=== PATIENT | female | born 1960 | race Hispanic/Latino ===

== ENCOUNTER 2021-06-16 23:08 | Inpatient (IN) | payer MEDICARE ==
[2021-06-17] MEDS ORDERED: oxyCODONE /ACETAMINOPHEN 5-325MG TAB PO ONE (00:39)
[2021-06-17] MEDS ORDERED: KETOROLAC 60 MG/2 ML INJ IM ONE (00:40)
--- NOTE | 2021-06-17 00:40 | Emergency Department Report ---
ED General Adult HPI - General Chief complaint: Extremity Injury, Upper Stated complaint: JOINT/BACK PAIN PUI?: No Time Seen by Provider: 06/17/21 00:35 Source: EMS Mode of arrival: Stretcher Limitations: Physical Limitation - History of Present Illness Initial comments: Patient is a 61-year-old female who presents emergency room for management of her chronic pain. Patient states she is in service pain is usually ambulatory. P atient states that she needs help with housing. Patient states she lives by herself. Patient states that she is having joint swelling but that is chronic. Patient states she sees chronic pain management. 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 Patient states she is due for a knee replacement. Patient states her knee replacements been put on hold due to Covid. Patient states her pain is a 10 out of 10. Patient states her pain is better with rest and worse with movement and palpation. Patient denies recent travel. Patient denies recent international travel. Patient denies exposure to the novel coronavirus. Patient denies sick contacts. Patient denies fever and chills. Patient denies cough. Patient denies diarrhea. Patient denies coming in contact with anybody with symptoms of the novel coronavirus. Patient states that she has been calling assisted living see if she can get accepted. -: Sudden Location: upper extremity, lower extremity Severity scale (0 -10): 10 Quality: stabbing Consistency: constant (Chronic pain), other Improves with: rest Worsens with: movement Associated Symptoms: denies: confusion, chest pain, cough, diaphoresis, fever/chills, headaches, loss of appetite, malaise, nausea/vomiting, rash, seizure, shortness of breath, syncope, weakness Treatments Prior to Arrival: none - Related Data Allergies Allergy/AdvReac Type Severity Reaction Status Date / Time No Known Allergies Allergy Verified 06/17/21 00:25 ED Review of Systems ROS: Stated complaint: JOINT/BACK PAIN Other details as noted in HPI Constitutional: denies: chills, fever Eyes: denies: eye pain, eye discharge, vision change ENT: denies: ear pain, throat pain Respiratory: denies: cough, shortness of breath, wheezing Cardiovascular: denies: chest pain, palpitations Endocrine: no symptoms reported Gastrointestinal: denies: abdominal pain, nausea, diarrhea Genitourinary: denies: urgency, dysuria, discharge Musculoskeletal: as per HPI, back pain, joint swelling, arthralgia Skin: denies: rash, lesions Neurological: denies: headache, weakness, paresthesias Psychiatric: denies: anxiety, depression Hematological/Lymphatic: denies: easy bleeding, easy bruising ED Past Medical Hx - Past Medical History Previous Medical History?: Yes Additional medical history: chronic pain - Surgical History Past Surgical History?: No - Family History Family history: no significant - Social History Smoking Status: Current Some Day Smoker Substance Use Type: None ED Physical Exam - General Limitations: Physical Limitation General appearance: alert, in no apparent distress - Head Head exam: Present: atraumatic, normocephalic - Eye Eye exam: Present: normal appearance - ENT ENT exam: Present: mucous membranes moist - Neck Neck exam: Present: normal inspection - Respiratory Respiratory exam: Present: normal lung sounds bilaterally. Absent: respiratory distress - Cardiovascular Cardiovascular Exam: Present: regular rate, normal rhythm. Absent: systolic murmur, diastolic murmur, rubs, gallop - GI/Abdominal GI/Abdominal exam: Present: soft, normal bowel sounds - Extremities Exam Extremities exam: Present: normal inspection - Back Exam Back exam: Present: normal inspection - Neurological Exam Neurological exam: Present: alert, oriented X3 - Psychiatric Psychiatric exam: Present: normal affect, normal mood - Skin Skin exam: Present: warm, dry, intact, normal color. Absent: rash ED Course Vital Signs 06/16/21 06/17/21 06/17/21 23:20 01:18 01:30 Temperature 98.0 F Pulse Rate 102 H Respiratory 18 Rate Blood Pressure 133/91 114/91 Blood Pressure [Left] O2 Sat by Pulse 99 99 96 Oximetry 06/17/21 06/17/21 06/17/21 01:46 02:00 02:16 Temperature Pulse Rate Respiratory Rate Blood Pressure 114/91 116/86 116/86 Blood Pressure [Left] O2 Sat by Pulse 93 97 96 Oximetry 06/17/21 06/17/21 06/17/21 02:30 02:46 03:00 Temperature Pulse Rate Respiratory Rate Blood Pressure 114/91 114/91 119/79 Blood Pressure [Left] O2 Sat by Pulse 97 96 96 Oximetry 06/17/21 06/17/21 06/17/21 03:16 03:30 03:46 Temperature Pulse Rate Respiratory Rate Blood Pressure 119/79 119/79 119/79 Blood Pressure [Left] O2 Sat by Pulse 95 97 96 Oximetry 06/17/21 06/17/21 06/17/21 04:00 04:16 04:30 Temperature Pulse Rate Respiratory Rate Blood Pressure 123/78 123/78 123/78 Blood Pressure [Left] O2 Sat by Pulse 97 97 95 Oximetry 06/17/21 06:39 Temperature Pulse Rate 88 Respiratory 19 Rate Blood Pressure Blood Pressure 130/75 [Left] O2 Sat by Pulse 96 Oximetry - Reevaluation(s) Reevaluation #1: I discussed all results with patient. I discussed plan of care with patient. Patient agrees with plan of care and admission. Patient to be admitted to the hospitalist service. 06/17/21 04:33 - Consultations Consultation #1: I discussed the case with Dr. Montes and Dr. Montes does not recommend admission. Dr. Montes states that this is not osteomyelitis. Dr. Montes agrees with admitting and he will see the patient in the morning and make a determination. 06/17/21 04:25 Consultation #2: Hospitalist consulted for admission. Hospitalist to admit patient. 06/17/21 04:26 ED Medical Decision Making - Lab Data Result diagrams: 06/17/21 01:02 06/17/21 01:02 - Radiology Data Radiology results: report reviewed, image reviewed RIGHT WRIST 4 VIEWS 0219 INDICATION: wrist pain COMPARISON: None available. FINDINGS: Surgical changes are seen in the distal radius with plate and screws noted transfixing a prior fracture site. Old avulsion of the ulnar styloid is seen with deformity of the distal ulna. In most areas the distal ulnar cortex appears intact though on some views there is a suggestion of cortical loss. Moderate wrist arthritic changes are seen, mostly laterally. No acute fractures or dislocations are noted. Soft tissue swelling is prominent in the wrists, particularly dorsally. No soft tissue gas is seen. No foreign bodies are detected. Distal ulnar findings together with the marked swelling of the wrist would raise the question of osteomyelitis. Clinical correlation is suggested. MR may be useful. - Medical Decision Making Patient is a 61-year-old female who presents emergency room with chronic pain complaints. Patient states that her right wrist started swelling 3 days ago. Patient states the swelling is a burning sensation in his or painful. Patient given Dilaudid and Toradol. Patient pain improved. Patient is a x-ray of her right wrist to rule out acute findings shows possible findings consistent with osteomyelitis. I then discussed the case with Ortho and Ortho states that it is highly unlikely with osteomyelitis but the patient can be admitted to observation and Also will consult on the patient. Patient was given Zosyn and bank IV. Patient admitted to the hospital service for further evaluation treatment. Critical care time documented due to the multiple reassessments, prolonged time at the bedside, interpretation of diagnostics and labs. - Differential Diagnosis Pain, joint swelling, chronic pain, Critical Care Time: Yes Critical care time in (mins) excluding proc time.: 35 Critical care attestation.: If time is entered above; I have spent that time in minutes in the direct care of this critically ill patient, excluding procedure time. Critical Care Time: Thank 35 minutes ED Disposition Clinical Impression: Wrist pain, right, Intractable pain Osteomyelitis Qualifiers: Osteomyelitis type: unspecified type Osteomyelitis location: ulna Laterality: right Qualified Code(s): M86.9 - Osteomyelitis, unspecified Disposition: ADMITTED INPATIENT Is pt being admited?: Yes Does the pt Need Aspirin: No Condition: Critical Time of Disposition: 04:36
[2021-06-17] MEDS ORDERED: KETOROLAC 30 MG/1 ML INJ IV ONE (00:51)
[2021-06-17] MEDS ORDERED: HYDROmorphone 2 MG/1 ML INJ IV ONE (00:51)
[2021-06-17 01:39] LABS: Alanine Aminotransferase 16 units/L (7-56); Albumin 3.2 g/dL (3.9-5); Blood Urea Nitrogen 16 mg/dL (7-17); Calcium 9.8 mg/dL (8.4-10.2); Hemolysis Index 286
[2021-06-17 01:43] LABS: Hemoglobin 10.8 gm/dl (10.1-14.3)
[2021-06-17 01:52] LABS: Hematocrit 33.5 % (30.3-42.9); Mean Corpuscular HGB Conc 32 % (30-34); Mean Corpuscular Volume 85 fl (79-97); Platelet Count 858 K/mm3 (140-440); Red Blood Count 3.93 M/mm3 (3.65-5.03); Red Cell Distribution Width 17.5 % (13.2-15.2)
[2021-06-17 02:04] LABS: BUN/Creatinine Ratio 40
[2021-06-17] MEDS ORDERED: SODIUM CHLORIDE 0.9% 1000 ML 1,000 ML IV ONE (02:09)
--- NOTE | 2021-06-17 03:22 | XRay Report ---
RIGHT WRIST 4 VIEWS 0219 INDICATION: wrist pain COMPARISON: None available. FINDINGS: Surgical changes are seen in the distal radius with plate and screws noted transfixing a pr ior fracture site. Old avulsion of the ulnar styloid is seen with deformity of the distal ulna. In mo st areas the distal ulnar cortex appears intact though on some views there is a suggestion of cortica l loss. Moderate wrist arthritic changes are seen, mostly laterally. No acute fractures or dislocatio ns are noted. Soft tissue swelling is prominent in the wrists, particularly dorsally. No soft tissue gas is seen. No foreign bodies are detected. Distal ulnar findings together with the marked swelling of the wrist would raise the question of oste omyelitis. Clinical correlation is suggested. MR may be useful. Signer Name: Ashvin Serrano MD Signed: 06/17/2021 3:18 AM Workstation Name: [id number]
[2021-06-17] MEDS ORDERED: VANCOMYCIN/NS 1 GM/250 ML 1 GM/250 ML BAG IV ONE ×2 (03:46→04:31)
[2021-06-17] MEDS ORDERED: PIPERACIL/TAZOBACTA 4.5/NS 100 4.5 GM/100 ML VIAL IV ONE ×2 (03:46→04:31)
[2021-06-17] MEDS ORDERED: ACETAMINOPHEN 325 MG TAB PO PRN (05:07)
[2021-06-17] MEDS ORDERED: MAGNESIUM HYDROXIDE (MOM) ORAL LIQD UDC PO PRN (05:07)
--- NOTE | 2021-06-17 05:15 | History and Physical Report ---
History of Present Illness Date of examination: 06/17/21 Date of admission: 06/17/2021 Chief complaint: Wrist Pain History of present illness: 61-year-old female with known history of chronic pain presents to the emergency room today complaining of pain in both wrists bilaterally. Patient has known history of injury to both her wrist in the past with screws placement in the wrist bilaterally. She denies any recent trauma and he denies any recent fall. 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 She denies any fever or chills, no chest pain or shortness of breath, no nausea or vomiting. Work-up in the emergency room today, x-ray of the right wrist reveals: marked swelling of the wrist would raise the question of osteomyelitis. Orthopedic surgeon was consulted by the ER physician for evaluation. Past History Past Medical History: arthritis, other (Chronic Pain) Past Surgical History: Other Social history: smoking (Current daily smoker) Family history: no significant family history Medications and Allergies Allergies Allergy/AdvReac Type Severity Reaction Status Date / Time No Known Allergies Allergy Verified 06/17/21 00:25 Active Meds: Active Medications Acetaminophen (Acetaminophen 325 Mg Tab) 650 mg PO Q4H PRN PRN Reason: Pain MILD(1-3)/Fever >100.5/MENENDEZ Heparin Sodium (Porcine) (Heparin 5,000 Unit/1 Ml Vial) 5,000 unit SUB-Q Q8HR CHE Vancomycin HCl (Vancomycin/Ns 1 Gm/250 Ml) 1 gm in 250 mls @ 167.007 mls/hr IV ONCE ONE; Protocol Stop: 06/17/21 06:00 Sodium Chloride (Nacl 0.9% 1000 Ml) 1,000 mls @ 75 mls/hr IV DIRECT CHE Piperacillin Sod/Tazobactam Sod (Zosyn/Ns 4.5gm/100ml) 4.5 gm in 100 mls @ 200 mls/hr IV Q8H CHE; Protocol Magnesium Hydroxide (Magnesium Hydroxide (Mom) Oral Liqd Udc) 30 ml PO Q4H PRN PRN Reason: Constipation Morphine Sulfate (Morphine 2 Mg/1 Ml Inj) 2 mg IV Q4H PRN PRN Reason: Pain, Moderate (4-6) Morphine Sulfate (Morphine 4 Mg/1 Ml Inj) 4 mg IV Q4H PRN PRN Reason: Pain , Severe (7-10) Ondansetron HCl (Ondansetron 4 Mg/2 Ml Inj) 4 mg IV Q8H PRN PRN Reason: Nausea And Vomiting Sodium Chloride (Sodium Chloride 0.9% 10 Ml Flush Syringe) 10 ml IV BID CHE Sodium Chloride (Sodium Chloride 0.9% 10 Ml Flush Syringe) 10 ml IV PRN PRN PRN Reason: LINE FLUSH Review of Systems Constitutional: no fever, no chills Ears, nose, mouth and throat: no nasal congestion, no sore throat Cardiovascular: no chest pain, no palpitations Respiratory: no cough, no shortness of breath Gastrointestinal: no abdominal pain, no nausea, no vomiting, no diarrhea Genitourinary Female: no pelvic pain, no flank pain, no dysuria, no hematuria Musculoskeletal: no neck pain, no low back pain Integumentary: no rash, no pruritis Neurological: no headaches, no confusion Psychiatric: no anxiety, no depression Endocrine: no polydipsia, no polyuria, no nocturia Exam - Constitutional Vitals: Temp Pulse Resp BP Pulse Ox 98.0 F 102 H 18 123/78 95 06/16/21 23:20 06/16/21 23:20 06/16/21 23:20 06/17/21 04:30 06/17/21 04:30 General appearance: Present: no acute distress, well-nourished - EENT Eyes: Present: PERRL, EOM intact. Absent: scleral icterus ENT: hearing intact, clear oral mucosa, dentition normal - Neck Neck: Present: supple, normal ROM - Respiratory Respiratory effort: normal Respiratory: bilateral: CTA - Cardiovascular Rhythm: regular Heart Sounds: Present: S1 & S2. Absent: systolic murmur, diastolic murmur, rub, click - Extremities Extremities: no ischemia, pulses intact, pulses symmetrical, No edema, Full ROM, abnormal (Bilateral wrist swelling. Right wrist mildly warm to touch.Moderately tender) Peripheral Pulses: within normal limits - Abdominal General gastrointestinal: Present: soft, non-tender, non-distended, normal bowel sounds. Absent: mass - Integumentary Integumentary: Present: clear, warm, dry. Absent: rash - Musculoskeletal Musculoskeletal: strength equal bilaterally - Psychiatric Psychiatric: appropriate mood/affect, intact judgment & insight, memory intact, cooperative - Neurologic Neurologic: CNII-XII intact, no focal deficits, moves all extremities Results - Labs CBC & Chem 7: 06/17/21 01:02 06/17/21 01:02 Labs: Abnormal lab results 06/17/21 06/17/21 Range/Units 01:02 01:02 MCH 27 L (28-32) pg RDW 17.5 H (13.2-15.2) % Plt Count 858 H (140-440) K/mm3 Sodium 132 L (137-145) mmol/L Creatinine 0.4 L (0.6-1.2) mg/dL Alkaline Phosphatase 197 H (35-129) units/L Albumin 3.2 L (3.9-5) g/dL Assessment and Plan - Patient Problems (1) Wrist pain, right Current Visit: Yes Status: Acute Plan to address problem: Patient placed analgesic medication as needed. Patient has history of trauma to the wrist bilaterally in the past. (2) Osteomyelitis Current Visit: Yes Status: Acute Qualifiers: Osteomyelitis type: unspecified type Osteomyelitis location: ulna Laterality: right Qualified Code(s): M86.9 - Osteomyelitis, unspecified Plan to address problem: Patient placed on empiric IV antibiotics for possible osteomyelitis. We will await evaluation by orthopedic surgery. (3) DVT prophylaxis Current Visit: Yes Status: Acute Plan to address problem: Patient placed on subcutaneous heparin. (4) Full code status Current Visit: Yes Status: Acute Plan to address problem: Patient is full code.
[2021-06-17] MEDS: MORPHINE 4 MG/1 ML INJ IV PRN ×4 (05:17→23:23)
[2021-06-17] MEDS: ONDANSETRON 4 MG/2 ML INJ IV PRN ×3 (05:28→23:23)
[2021-06-17] MEDS ORDERED: VANCOMYCIN PHARMACY TO DOSE IV SCH (06:00)
[2021-06-17] MEDS: HEPARIN 5,000 UNIT/1 ML VIAL SUB-Q SCH ×3 (07:22→23:26)
[2021-06-17] MEDS: MORPHINE 2 MG/1 ML INJ IV PRN (08:41)
[2021-06-17] MEDS ORDERED: cefTRIAXone/NS 2 GM/100 ML 2 GM/100 ML BAG IV SCH (10:00)
--- NOTE | 2021-06-17 10:19 | Progress Note ---
Assessment and Plan Assessment and plan: Right wrist pain ? Osteomyelitis Hyponatremia. Tobacco abuse DVT prophylaxis 06/17/2021. Await orthopedics and ID consultation. Continue IV antibiotics for now. Pain control History Interval history: No new issues overnight. Hospitalist Physical - Constitutional Vitals: Temp Pulse Resp BP Pulse Ox 98.0 F 88 19 130/75 96 06/16/21 23:20 06/17/21 06:39 06/17/21 06:39 06/17/21 06:39 06/17/21 06:39 General appearance: Present: no acute distress, well-nourished - EENT Eyes: Present: PERRL, EOM intact ENT: hearing intact, clear oral mucosa, dentition normal - Neck Neck: Present: supple, normal ROM - Respiratory Respiratory effort: normal Respiratory: bilateral: CTA - Cardiovascular Rhythm: regular Heart Sounds: Present: S1 & S2. Absent: gallop, rub - Extremities Extremities: no ischemia, No edema, Full ROM - Abdominal General gastrointestinal: soft, non-tender, non-distended, normal bowel sounds - Integumentary Integumentary: Present: clear, warm, dry - Neurologic Neurologic: CNII-XII intact, moves all extremities Results - Labs CBC & Chem 7: 06/17/21 01:02 06/17/21 01:02 Labs: Laboratory Last Values WBC 10.3 K/mm3 (4.5-11.0) 06/17/21 01:02 RBC 3.93 M/mm3 (3.65-5.03) 06/17/21 01:02 Hgb 10.8 gm/dl (10.1-14.3) 06/17/21 01:02 Hct 33.5 % (30.3-42.9) 06/17/21 01:02 MCV 85 fl (79-97) 06/17/21 01:02 MCH 27 pg (28-32) L 06/17/21 01:02 MCHC 32 % (30-34) 06/17/21 01:02 RDW 17.5 % (13.2-15.2) H 06/17/21 01:02 Plt Count 858 K/mm3 (140-440) H 06/17/21 01:02 Sodium 132 mmol/L (137-145) L 06/17/21 01:02 Potassium TNR 06/17/21 01:02 Chloride 98.6 mmol/L (98-107) 06/17/21 01:02 Carbon Dioxide 24 mmol/L (22-30) 06/17/21 01:02 Anion Gap 16 mmol/L 06/17/21 01:02 BUN 16 mg/dL (7-17) 06/17/21 01:02 Creatinine 0.4 mg/dL (0.6-1.2) L 06/17/21 01:02 Estimated GFR > 60 ml/min 06/17/21 01:02 BUN/Creatinine Ratio 40 % 06/17/21 01:02 Glucose 96 mg/dL (65-100) 06/17/21 01:02 Calcium 9.8 mg/dL (8.4-10.2) 06/17/21 01:02 Total Bilirubin 0.20 mg/dL (0.1-1.2) 06/17/21 01:02 AST 35 units/L (5-40) 06/17/21 01:02 ALT 16 units/L (7-56) 06/17/21 01:02 Alkaline Phosphatase 197 units/L (35-129) H 06/17/21 01:02 Total Protein 7.7 g/dL (6.3-8.2) 06/17/21 01:02 Albumin 3.2 g/dL (3.9-5) L 06/17/21 01:02 Albumin/Globulin Ratio 0.7 % 06/17/21 01:02 Active Medications - Current Medications Current Medications: Generic Name Dose Route Start Last Admin Trade Name Freq PRN Reason Stop Dose Admin Acetaminophen 650 mg 06/17/21 05:07 06/17/21 08:42 Acetaminophen 325 Mg Tab PO 650 mg Q4H PRN Administration Pain MILD(1-3)/Fever >100.5/MENENDEZ Heparin Sodium (Porcine) 5,000 unit 06/17/21 06:00 06/17/21 07:22 Heparin 5,000 Unit/1 Ml Vial SUB-Q 5,000 unit Q8HR CHE Administration Sodium Chloride 1,000 mls @ 75 mls/hr 06/17/21 05:15 Nacl 0.9% 1000 Ml IV DIRECT CHE Vancomycin HCl 1 gm in 250 mls @ 250 mls/hr 06/17/21 16:00 Vancomycin/Ns 1 Gm/250 Ml IV Q12H CHE Ceftriaxone Sodium 2 gm in 100 mls @ 200 mls/hr 06/17/21 10:00 Rocephin/Ns 2 Gm/100 Ml IV Q24H [facility] Protocol Magnesium Hydroxide 30 ml 06/17/21 05:07 Magnesium Hydroxide (Mom) Oral Liqd Udc PO Q4H PRN Constipation Morphine Sulfate 2 mg 06/17/21 05:07 06/17/21 08:41 Morphine 2 Mg/1 Ml Inj IV 2 mg Q4H PRN Administration Pain, Moderate (4-6) Morphine Sulfate 4 mg 06/17/21 05:07 06/17/21 05:17 Morphine 4 Mg/1 Ml Inj IV 4 mg Q4H PRN Administration Pain , Severe (7-10) Ondansetron HCl 4 mg 06/17/21 05:07 06/17/21 08:41 Ondansetron 4 Mg/2 Ml Inj IV 4 mg Q8H PRN Administration Nausea And Vomiting Sodium Chloride 10 ml 06/17/21 10:00 Sodium Chloride 0.9% 10 Ml Flush Syringe IV BID [facility] Sodium Chloride 10 ml 06/17/21 05:07 Sodium Chloride 0.9% 10 Ml Flush Syringe IV PRN PRN LINE FLUSH
--- NOTE | 2021-06-17 13:21 | Consultation ---
History of Present Illness - Reason for Consult Consult date: 06/17/21 ?osteomyelitis Requesting physician: BENJI ALVAREZ - History of Present Illness The patient is a 61-year-old female with a history of arthritis, tobacco abuse was admitted to the hospital with bilateral wrist pain. Patient reports a longstanding history of joint pains, she has a prior history of wrist fracture with indwelling hardware. She also reports following with rheumatology at [place] in the past, apparently was diagnosed as rheumatoid arthritis but methotrexate and steroids did not help. She has since stopped following up. About 2 weeks ago, she reports falling and since then her pain has worsened. She reports pain in bilateral wrists, elbow, shoulder as well as muscle pains. She also reports bilateral knee arthritis and pain and was supposedly scheduled for knee replacement. X-ray of the right wrist showed distal radius plate and screws, old avulsion of the ulnar styloid and some cortical loss along with swelling, this raises a question of osteomyelitis, hence infectious diseases was consulted. Review of Systems: General: no fevers HEENT: no new visual disturbance Respiratory: No cough, sputum, hemoptysis or shortness of breath Cardiovascular: No chest pain, syncope Gastrointestinal: No nausea, vomiting or diarrhea Genitourinary: No dysuria or hematuria Musculoskeletal: diffuse joint pains, muscle pains Neurologic: No headaches, seizures Hematologic: No easy bruising or bleeding Endocrine: No night sweats or acute weight loss Skin: negative for rash, jaundice Psychiatric: No suicidal or homicidal ideation Past History Past Medical History: arthritis, other (Chronic Pain) Past Surgical History: Other Social history: smoking (Current daily smoker) Family history: no significant family history Medications and Allergies Allergies Allergy/AdvReac Type Severity Reaction Status Date / Time No Known Allergies Allergy Verified 06/17/21 00:25 Active Meds: Active Medications Acetaminophen (Acetaminophen 325 Mg Tab) 650 mg PO Q4H PRN PRN Reason: Pain MILD(1-3)/Fever >100.5/MENENDEZ Last Admin: 06/17/21 08:42 Dose: 650 mg Documented by: Heparin Sodium (Porcine) (Heparin 5,000 Unit/1 Ml Vial) 5,000 unit SUB-Q Q8HR CHE Last Admin: 06/17/21 07:22 Dose: 5,000 unit Documented by: Sodium Chloride (Nacl 0.9% 1000 Ml) 1,000 mls @ 75 mls/hr IV DIRECT CHE Vancomycin HCl (Vancomycin/Ns 1 Gm/250 Ml) 1 gm in 250 mls @ 250 mls/hr IV Q12H [facility] Ceftriaxone Sodium (Rocephin/Ns 2 Gm/100 Ml) 2 gm in 100 mls @ 200 mls/hr IV Q24H [facility]; Protocol Last Admin: 06/17/21 11:18 Dose: 200 mls/hr Documented by: Magnesium Hydroxide (Magnesium Hydroxide (Mom) Oral Liqd Udc) 30 ml PO Q4H PRN PRN Reason: Constipation Morphine Sulfate (Morphine 2 Mg/1 Ml Inj) 2 mg IV Q4H PRN PRN Reason: Pain, Moderate (4-6) Last Admin: 06/17/21 08:41 Dose: 2 mg Documented by: Morphine Sulfate (Morphine 4 Mg/1 Ml Inj) 4 mg IV Q4H PRN PRN Reason: Pain , Severe (7-10) Last Admin: 06/17/21 05:17 Dose: 4 mg Documented by: Ondansetron HCl (Ondansetron 4 Mg/2 Ml Inj) 4 mg IV Q8H PRN PRN Reason: Nausea And Vomiting Last Admin: 06/17/21 08:41 Dose: 4 mg Documented by: Sodium Chloride (Sodium Chloride 0.9% 10 Ml Flush Syringe) 10 ml IV BID CHE Sodium Chloride (Sodium Chloride 0.9% 10 Ml Flush Syringe) 10 ml IV PRN PRN PRN Reason: LINE FLUSH Physical Examination - Physical Exam Narrative exam: Physical Exam: Constitutional: Alert, cooperative. No acute distress Head, Ears, Nose: Normocephalic, atraumatic. External ears, nose normal Eyes: Conjunctivae/corneas clear. No icterus. No ptosis. Neck: Supple, no meningeal signs Oral: Mask Cardiovascular: S1, S2 + Respiratory: Good air entry, clear to auscultation bilaterally GI: Soft, non-tender; bowel sounds normal. No peritoneal signs Musculoskeletal: Bilateral knees with swelling, tenderness. Bilateral wrists with surgical scar, swelling, tenderness, deformity. All large joints are tender. Skin: No rash or abscess Hem/Lymphatic: No palpable cervical or supraclavicular nodes. No lymphangitis Psych: Mood ok. Affect normal Neurological: Awake, alert, oriented. No gross abnormality - Constitutional Vitals: Vital Signs Temp Pulse Resp BP Pulse Ox 98.0 F 70 18 119/69 92 06/16/21 23:20 06/17/21 11:00 06/17/21 11:00 06/17/21 11:00 06/17/21 11:00 Temperature -Last 24 Hours Temperature 98.0 F Results - Labs CBC & Chem 7: 06/17/21 01:02 06/17/21 01:02 Labs: Abnormal lab results 06/17/21 06/17/21 Range/Units 01:02 01:02 MCH 27 L (28-32) pg RDW 17.5 H (13.2-15.2) % Plt Count 858 H (140-440) K/mm3 Sodium 132 L (137-145) mmol/L Creatinine 0.4 L (0.6-1.2) mg/dL Alkaline Phosphatase 197 H (35-129) units/L Albumin 3.2 L (3.9-5) g/dL Assessment and Plan Cultures: None A/P: 61-year-old female with a history of arthritis, tobacco abuse: #Polyarthritis with deformities of bilateral wrists, also involvement of bilateral ankles, shoulders and knees: Has been evaluated by rheumatology in the past. Most of her symptoms and changes are chronic, no wounds externally. Right wrist x-ray findings are very nonspecific, she has had previous trauma, internal fixation surgery. Inflammatory markers may not be helpful to rule out infectious process especially if she has an underlying rheumatologic condition. No fever, no leukocytosis. Also, recent worsening may be related to a fall 2 weeks ago as mentioned by patient. This is not clinically consistent with osteomyelitis especially polyarticular involvement. Patient reports seeing rheumatology at [place], no records found. #Thrombocytosis Recs: Antibiotics discontinued ESR, CRP, IAN, C3, C4, rheumatoid factor, anti-CCP ordered Recommend follow-up with outpatient rheumatology Analisa John MD, FACP [facility] ([facility] O: [phone] F: [phone]
[2021-06-17] MEDS ORDERED: PIPERACIL/TAZOBACTA 4.5/NS 100 4.5 GM/100 ML VIAL IV SCH (14:00)
--- NOTE | 2021-06-17 14:33 | Consultation ---
History of Present Illness - [facility] Consult date: 06/17/21 Consult reason: joint pain History of present illness: 61 y/o female with bilateral wrist and knee pain and swelling, history of RA, states has not taken any RA meds w/n past several months...Told she needed knee replacement surgery prior to Covid- pandemic...presently c/o severe wrist pain and swelling difficult doing ADL's plus she lives alone almost impossible getting up to use toilet or going to kitchen, etc... Past History Past Medical History: arthritis, other (Chronic Pain) Past Surgical History: Other Social history: smoking (Current daily smoker) Family history: no significant family history Medications and Allergies Allergies Allergy/AdvReac Type Severity Reaction Status Date / Time No Known Allergies Allergy Verified 06/17/21 00:25 Active Meds: Active Medications Acetaminophen (Acetaminophen 325 Mg Tab) 650 mg PO Q4H PRN PRN Reason: Pain MILD(1-3)/Fever >100.5/MENENDEZ Last Admin: 06/17/21 08:42 Dose: 650 mg Documented by: Heparin Sodium (Porcine) (Heparin 5,000 Unit/1 Ml Vial) 5,000 unit SUB-Q Q8HR CHE Last Admin: 06/17/21 07:22 Dose: 5,000 unit Documented by: Sodium Chloride (Nacl 0.9% 1000 Ml) 1,000 mls @ 75 mls/hr IV DIRECT CHE Magnesium Hydroxide (Magnesium Hydroxide (Mom) Oral Liqd Udc) 30 ml PO Q4H PRN PRN Reason: Constipation Morphine Sulfate (Morphine 2 Mg/1 Ml Inj) 2 mg IV Q4H PRN PRN Reason: Pain, Moderate (4-6) Last Admin: 06/17/21 08:41 Dose: 2 mg Documented by: Morphine Sulfate (Morphine 4 Mg/1 Ml Inj) 4 mg IV Q4H PRN PRN Reason: Pain , Severe (7-10) Last Admin: 06/17/21 05:17 Dose: 4 mg Documented by: Ondansetron HCl (Ondansetron 4 Mg/2 Ml Inj) 4 mg IV Q8H PRN PRN Reason: Nausea And Vomiting Last Admin: 06/17/21 08:41 Dose: 4 mg Documented by: Sodium Chloride (Sodium Chloride 0.9% 10 Ml Flush Syringe) 10 ml IV BID CHE Sodium Chloride (Sodium Chloride 0.9% 10 Ml Flush Syringe) 10 ml IV PRN PRN PRN Reason: LINE FLUSH Physical Examination - Physical exam Narrative exam: BUE - wrist - moderate fusiform swelling dorsally, good active ROM at all digits, tender on palpation, good cap refill BLE - knees - moderate swelling, decreased passive RoM, no redness/erythema Assessment and Plan bilateral painful wrists and knees, hx of RA recommend wrist braces, placement to SNF...
--- NOTE | 2021-06-17 15:37 | XRay Report ---
BILATERAL KNEES 2 VIEWS INDICATION: painful knees, no hx of injury poss RA. COMPARISON: None. IMPRESSION: Normal bone mineralization. Severe tricompartmental osteoarthritic changes are identifie d throughout both knees. Large joint effusions are identified bilaterally. No acute osseous injury or bone lesion is detected. Signer Name: Jeet Mcclain Jr, MD Signed: 06/17/2021 3:33 PM Workstation Name: [email or web address]
[2021-06-17] MEDS ORDERED: VANCOMYCIN/NS 1 GM/250 ML 1 GM/250 ML BAG IV SCH (16:00)
[2021-06-17] MEDS: HYDROcodone/ACETAMINOPHEN 5-325 MG TAB PO PRN (16:33)
[2021-06-17] MEDS: SODIUM CHLORIDE 0.9% 1000 ML 1,000 ML IV SCH (23:23)
[2021-06-18] MEDS: HYDROcodone/ACETAMINOPHEN 5-325 MG TAB PO PRN ×3 (03:33→16:38)
[2021-06-18 06:13] LABS: Basophils % (Auto) 0.5 % (0.0-1.8); Eosinophils % (Auto) 0.5 % (0.0-4.3); Hematocrit 26.7 % (30.3-42.9); Hemoglobin 8.7 gm/dl (10.1-14.3); Lymphocytes # (Auto) 0.9 K/mm3 (1.2-5.4); Lymphocytes % (Auto) 12.3 % (13.4-35.0); Mean Corpuscular HGB Conc 33 % (30-34); Mean Corpuscular Volume 87 fl (79-97); Monocytes # (Auto) 0.6 K/mm3 (0.0-0.8); Monocytes % (Auto) 7.5 % (0.0-7.3); Platelet Count 580 K/mm3 (140-440); Red Blood Count 3.09 M/mm3 (3.65-5.03)
[2021-06-18] MEDS: HEPARIN 5,000 UNIT/1 ML VIAL SUB-Q SCH ×3 (06:17→22:01)
[2021-06-18 06:19] LABS: INR 1.18 (0.87-1.13)
[2021-06-18 06:30] LABS: Blood Urea Nitrogen 17 mg/dL (7-17); Calcium 8.9 mg/dL (8.4-10.2); Hemolysis Index 24
[2021-06-18 06:36] LABS: BUN/Creatinine Ratio 43
--- NOTE | 2021-06-18 08:44 | Progress Note ---
Assessment and Plan Assessment and plan: 61-year-old female with a history of arthritis, tobacco abuse was admitted to the hospital with bilateral wrist pain. Patient reports a longstanding history of joint pains, she has a prior history of wrist fracture with indwelling hardware. She also reports following with rheumatology at [place] in the past, apparently was diagnosed as rheumatoid arthritis but methotrexate and steroids did not help. She has since stopped following up. About 2 weeks ago, she reports falling and since then her pain has worsened. She reports pain in bilateral wrists, elbow, shoulder as well as muscle pains. She also reports bilateral knee arthritis and pain and was supposedly scheduled for knee replacement. X-ray of the right wrist showed distal radius plate and screws, old avulsion of the ulnar styloid and some cortical loss along with swelling, this raises a question of osteomyelitis, hence infectious diseases was consulted. ID felt that the patient was not clinically consistent with osteomyelitis especially polyarticular involvement. Antibiotics were discontinued. Inflammatory markers were ordered. Recommendations was for follow-up with outpatient rheumatology. Right wrist pain Hyponatremia. Tobacco abuse DVT prophylaxis 06/17/2021. Await orthopedics and ID consultation. Continue IV antibiotics for now. Pain control 06/18/2021. Orthopedic and ID consultation does not feel that the patient's presentation is clinically consistent with osteomyelitis. Antibiotics discont inued. Follow-up inflammatory markers ESR, CRP, IAN, C3, C4, rheumatoid factor and anti-CCP. Await physical therapy evaluation for discharge planning History Interval history: No new issues overnight. Hospitalist Physical - Constitutional Vitals: Temp Pulse Resp BP Pulse Ox 97.4 F L 69 18 148/81 96 06/18/21 06:05 06/18/21 06:05 06/18/21 06:05 06/18/21 06:05 06/18/21 06:05 General appearance: Present: no acute distress, well-nourished - EENT Eyes: Present: PERRL, EOM intact ENT: hearing intact, clear oral mucosa, dentition normal - Neck Neck: Present: supple, normal ROM - Respiratory Respiratory effort: normal Respiratory: bilateral: CTA - Cardiovascular Rhythm: regular Heart Sounds: Present: S1 & S2. Absent: gallop, rub - Extremities Extremities: no ischemia, No edema, Full ROM - Abdominal General gastrointestinal: soft, non-tender, non-distended, normal bowel sounds - Integumentary Integumentary: Present: clear, warm, dry - Neurologic Neurologic: CNII-XII intact, moves all extremities Results - Labs CBC & Chem 7: 06/18/21 04:29 06/18/21 04:29 Labs: Laboratory Last Values WBC 7.6 K/mm3 (4.5-11.0) 06/18/21 04:29 RBC 3.09 M/mm3 (3.65-5.03) L 06/18/21 04:29 Hgb 8.7 gm/dl (10.1-14.3) L 06/18/21 04:29 Hct 26.7 % (30.3-42.9) L D 06/18/21 04:29 MCV 87 fl (79-97) 06/18/21 04:29 MCH 28 pg (28-32) 06/18/21 04:29 MCHC 33 % (30-34) 06/18/21 04:29 RDW 17.0 % (13.2-15.2) H 06/18/21 04:29 Plt Count 580 K/mm3 (140-440) H 06/18/21 04:29 Lymph % (Auto) 12.3 % (13.4-35.0) L 06/18/21 04:29 [place] % (Auto) 7.5 % (0.0-7.3) H 06/18/21 04:29 Eos % (Auto) 0.5 % (0.0-4.3) 06/18/21 04:29 Baso % (Auto) 0.5 % (0.0-1.8) 06/18/21 04:29 Lymph # (Auto) 0.9 K/mm3 (1.2-5.4) L 06/18/21 04:29 [place] # (Auto) 0.6 K/mm3 (0.0-0.8) 06/18/21 04:29 Eos # (Auto) 0.0 K/mm3 (0.0-0.4) 06/18/21 04:29 Baso # (Auto) 0.0 K/mm3 (0.0-0.1) 06/18/21 04:29 Seg Neutrophils % 79.2 % (40.0-70.0) H 06/18/21 04:29 Seg Neutrophils # 6.0 K/mm3 (1.8-7.7) 06/18/21 04:29 ESR 105 mm/Hr (0-20) 06/17/21 15:21 PT 15.5 Sec. (12.2-14.9) H 06/18/21 04:29 INR 1.18 (0.87-1.13) H 06/18/21 04:29 Sodium 137 mmol/L (137-145) 06/18/21 04:29 Potassium 4.1 mmol/L (3.6-5.0) 06/18/21 04:29 Chloride 103.6 mmol/L (98-107) 06/18/21 04:29 Carbon Dioxide 16 mmol/L (22-30) L D 06/18/21 04:29 Anion Gap 22 mmol/L 06/18/21 04:29 BUN 17 mg/dL (7-17) 06/18/21 04:29 Creatinine 0.4 mg/dL (0.6-1.2) L 06/18/21 04:29 Estimated GFR > 60 ml/min 06/18/21 04:29 BUN/Creatinine Ratio 43 % 06/18/21 04:29 Glucose 84 mg/dL (65-100) 06/18/21 04:29 Calcium 8.9 mg/dL (8.4-10.2) 06/18/21 04:29 Total Bilirubin 0.20 mg/dL (0.1-1.2) 06/17/21 01:02 AST 35 units/L (5-40) 06/17/21 01:02 ALT 16 units/L (7-56) 06/17/21 01:02 Alkaline Phosphatase 197 units/L (35-129) H 06/17/21 01:02 C-Reactive Protein 9.10 mg/dL (0.00-1.30) H 06/17/21 15:21 Total Protein 7.7 g/dL (6.3-8.2) 06/17/21 01:02 Albumin 3.2 g/dL (3.9-5) L 06/17/21 01:02 Albumin/Globulin Ratio 0.7 % 06/17/21 01:02 Rheumatoid Factor 21 IU/ml (0-13) H 06/17/21 15:21 [place]/IV: Voiding Method External Female Catheter Active Medications - Current Medications Current Medications: Generic Name Dose Route Start Last Admin Trade Name Freq PRN Reason Stop Dose Admin Acetaminophen 650 mg 06/17/21 05:07 06/17/21 08:42 Acetaminophen 325 Mg Tab PO 650 mg Q4H PRN Administration Pain MILD(1-3)/Fever >100.5/MENENDEZ Hydrocodone Bitart/Acetaminophen 1 each 06/17/21 16:24 06/18/21 03:33 Hydrocodone/Acetaminophen 5-325 Mg Tab PO 1 each Q6H PRN Administration Pain, Moderate (4-6) Heparin Sodium (Porcine) 5,000 unit 06/17/21 06:00 06/18/21 06:17 Heparin 5,000 Unit/1 Ml Vial SUB-Q 5,000 unit Q8HR CHE Administration Sodium Chloride 1,000 mls @ 75 mls/hr 06/17/21 05:15 06/18/21 01:51 Nacl 0.9% 1000 Ml IV 0 mls/hr DIRECT CHE Infusion Magnesium Hydroxide 30 ml 06/17/21 05:07 Magnesium Hydroxide (Mom) Oral Liqd Udc PO Q4H PRN Constipation Morphine Sulfate 2 mg 06/17/21 05:07 06/17/21 08:41 Morphine 2 Mg/1 Ml Inj IV 2 mg Q4H PRN Administration Pain, Moderate (4-6) Morphine Sulfate 4 mg 06/17/21 05:07 06/17/21 23:23 Morphine 4 Mg/1 Ml Inj IV 4 mg Q4H PRN Administration Pain , Severe (7-10) Ondansetron HCl 4 mg 06/17/21 05:07 06/17/21 23:23 Ondansetron 4 Mg/2 Ml Inj IV 4 mg Q8H PRN Administration Nausea And Vomiting Sodium Chloride 10 ml 06/17/21 10:00 06/17/21 23:27 Sodium Chloride 0.9% 10 Ml Flush Syringe IV 10 ml BID CHE Administration Sodium Chloride 10 ml 06/17/21 05:07 Sodium Chloride 0.9% 10 Ml Flush Syringe IV PRN PRN LINE FLUSH
[2021-06-18] MEDS: MORPHINE 4 MG/1 ML INJ IV PRN ×4 (09:00→22:04)
[2021-06-18] MEDS: ONDANSETRON 4 MG/2 ML INJ IV PRN (09:16)
[2021-06-19] MEDS: SODIUM CHLORIDE 0.9% 1000 ML 1,000 ML IV SCH ×2 (00:22→14:41)
[2021-06-19] MEDS: HYDROcodone/ACETAMINOPHEN 5-325 MG TAB PO PRN ×4 (00:36→21:11)
[2021-06-19] MEDS: MORPHINE 4 MG/1 ML INJ IV PRN ×5 (02:55→19:09)
[2021-06-19] MEDS: HEPARIN 5,000 UNIT/1 ML VIAL SUB-Q SCH ×4 (06:09→21:08)
--- NOTE | 2021-06-19 09:32 | Progress Note ---
Assessment and Plan Assessment and plan: 61-year-old female with a history of arthritis, tobacco abuse was admitted to the hospital with bilateral wrist pain. Patient reports a longstanding history of joint pains, she has a prior history of wrist fracture with indwelling hardware. She also reports following with rheumatology at [place] in the past, apparently was diagnosed as rheumatoid arthritis but methotrexate and steroids did not help. She has since stopped following up. About 2 weeks ago, she reports falling and since then her pain has worsened. She reports pain in bilateral wrists, elbow, shoulder as well as muscle pains. She also reports bilateral knee arthritis and pain and was supposedly scheduled for knee replacement. X-ray of the right wrist showed distal radius plate and screws, old avulsion of the ulnar styloid and some cortical loss along with swelling, this raises a question of osteomyelitis, hence infectious diseases was consulted. ID felt that the patient was not clinically consistent with osteomyelitis especially polyarticular involvement. Antibiotics were discontinued. Inflammatory markers were ordered. Recommendations was for follow-up with outpatient rheumatology. Rheumatoid arthritis flare Bilateral wrist pain Hyponatremia. Tobacco abuse DVT prophylaxis 06/17/2021. Await orthopedics and ID consultation. Continue IV antibiotics for now. Pain control 06/18/2021. Orthopedic and ID consultation does not feel that the patient's presentation is clinically consistent with osteomyelitis. Antibiotics discontinued. Follow-up inflammatory markers ESR, CRP, IAN, C3, C4, rheumatoid factor and anti-CCP. Await physical therapy evaluation for discharge planning 06/19/2021. We will initiate prednisone 50 mg daily for rheumatoid arthritis flare. Await PT evaluation. Follow-up inflammatory markers ESR, CRP, IAN, C3, C4, rheumatoid factor and anti-CCP. History Interval history: No new issues overnight. Hospitalist Physical - Constitutional Vitals: Temp Pulse Resp BP Pulse Ox 97.7 F 74 17 137/86 98 06/19/21 08:39 06/19/21 08:39 06/19/21 08:40 06/19/21 08:39 06/19/21 08:40 General appearance: Present: no acute distress, well-nourished - EENT Eyes: Present: PERRL, EOM intact ENT: hearing intact, clear oral mucosa, dentition normal - Neck Neck: Present: supple, normal ROM - Respiratory Respiratory effort: normal Respiratory: bilateral: CTA - Cardiovascular Rhythm: regular Heart Sounds: Present: S1 & S2. Absent: gallop, rub - Extremities Extremities: no ischemia, No edema, Full ROM - Abdominal General gastrointestinal: soft, non-tender, non-distended, normal bowel sounds - Integumentary Integumentary: Present: clear, warm, dry - Neurologic Neurologic: CNII-XII intact, moves all extremities Results - Labs CBC & Chem 7: 06/18/21 04:29 06/18/21 04:29 Labs: Laboratory Last Values WBC 7.6 K/mm3 (4.5-11.0) 06/18/21 04:29 RBC 3.09 M/mm3 (3.65-5.03) L 06/18/21 04:29 Hgb 8.7 gm/dl (10.1-14.3) L 06/18/21 04:29 Hct 26.7 % (30.3-42.9) L D 06/18/21 04:29 MCV 87 fl (79-97) 06/18/21 04:29 MCH 28 pg (28-32) 06/18/21 04:29 MCHC 33 % (30-34) 06/18/21 04:29 RDW 17.0 % (13.2-15.2) H 06/18/21 04:29 Plt Count 580 K/mm3 (140-440) H 06/18/21 04:29 Lymph % (Auto) 12.3 % (13.4-35.0) L 06/18/21 04:29 [place] % (Auto) 7.5 % (0.0-7.3) H 06/18/21 04:29 Eos % (Auto) 0.5 % (0.0-4.3) 06/18/21 04:29 Baso % (Auto) 0.5 % (0.0-1.8) 06/18/21 04:29 Lymph # (Auto) 0.9 K/mm3 (1.2-5.4) L 06/18/21 04:29 [place] # (Auto) 0.6 K/mm3 (0.0-0.8) 06/18/21 04:29 Eos # (Auto) 0.0 K/mm3 (0.0-0.4) 06/18/21 04:29 Baso # (Auto) 0.0 K/mm3 (0.0-0.1) 06/18/21 04:29 Seg Neutrophils % 79.2 % (40.0-70.0) H 06/18/21 04:29 Seg Neutrophils # 6.0 K/mm3 (1.8-7.7) 06/18/21 04:29 ESR 105 mm/Hr (0-20) 06/17/21 15:21 PT 15.5 Sec. (12.2-14.9) H 06/18/21 04:29 INR 1.18 (0.87-1.13) H 06/18/21 04:29 Sodium 137 mmol/L (137-145) 06/18/21 04:29 Potassium 4.1 mmol/L (3.6-5.0) 06/18/21 04:29 Chloride 103.6 mmol/L (98-107) 06/18/21 04:29 Carbon Dioxide 16 mmol/L (22-30) L D 06/18/21 04:29 Anion Gap 22 mmol/L 06/18/21 04:29 BUN 17 mg/dL (7-17) 06/18/21 04:29 Creatinine 0.4 mg/dL (0.6-1.2) L 06/18/21 04:29 Estimated GFR > 60 ml/min 06/18/21 04:29 BUN/Creatinine Ratio 43 % 06/18/21 04:29 Glucose 84 mg/dL (65-100) 06/18/21 04:29 Calcium 8.9 mg/dL (8.4-10.2) 06/18/21 04:29 Total Bilirubin 0.20 mg/dL (0.1-1.2) 06/17/21 01:02 AST 35 units/L (5-40) 06/17/21 01:02 ALT 16 units/L (7-56) 06/17/21 01:02 Alkaline Phosphatase 197 units/L (35-129) H 06/17/21 01:02 C-Reactive Protein 9.10 mg/dL (0.00-1.30) H 06/17/21 15:21 Total Protein 7.7 g/dL (6.3-8.2) 06/17/21 01:02 Albumin 3.2 g/dL (3.9-5) L 06/17/21 01:02 Albumin/Globulin Ratio 0.7 % 06/17/21 01:02 Rheumatoid Factor 21 IU/ml (0-13) H 06/17/21 15:21 [place]/IV: Voiding Method External Female Catheter Active Medications - Current Medications Current Medications: Generic Name Dose Route Start Last Admin Trade Name Freq PRN Reason Stop Dose Admin Acetaminophen 650 mg 06/17/21 05:07 06/17/21 08:42 Acetaminophen 325 Mg Tab PO 650 mg Q4H PRN Administration Pain MILD(1-3)/Fever >100.5/MENENDEZ Hydrocodone Bitart/Acetaminophen 1 each 06/17/21 16:24 06/19/21 08:36 Hydrocodone/Acetaminophen 5-325 Mg Tab PO 1 each Q6H PRN Administration Pain, Moderate (4-6) Heparin Sodium (Porcine) 5,000 unit 06/17/21 06:00 06/19/21 06:09 Heparin 5,000 Unit/1 Ml Vial SUB-Q Not Given Q8HR CHE Sodium Chloride 1,000 mls @ 75 mls/hr 06/17/21 05:15 06/19/21 00:22 Nacl 0.9% 1000 Ml IV 75 mls/hr DIRECT CHE Administration Magnesium Hydroxide 30 ml 06/17/21 05:07 Magnesium Hydroxide (Mom) Oral Liqd Udc PO Q4H PRN Constipation Morphine Sulfate 2 mg 06/17/21 05:07 06/17/21 08:41 Morphine 2 Mg/1 Ml Inj IV 2 mg Q4H PRN Administration Pain, Moderate (4-6) Morphine Sulfate 4 mg 06/17/21 05:07 06/19/21 06:43 Morphine 4 Mg/1 Ml Inj IV 4 mg Q4H PRN Administration Pain , Severe (7-10) Ondansetron HCl 4 mg 06/17/21 05:07 06/18/21 09:16 Ondansetron 4 Mg/2 Ml Inj IV 4 mg Q8H PRN Administration Nausea And Vomiting Sodium Chloride 10 ml 06/17/21 10:00 06/18/21 22:05 Sodium Chloride 0.9% 10 Ml Flush Syringe IV 10 ml BID CHE Administration Sodium Chloride 10 ml 06/17/21 05:07 06/19/21 06:44 Sodium Chloride 0.9% 10 Ml Flush Syringe IV 10 ml PRN PRN Administration LINE FLUSH Nutrition/Malnutrition Assess - Dietary Evaluation Nutrition/Malnutrition Findings: Nutrition Notes Start: 06/18/21 09:57 Freq: Status: Active Protocol: Document 06/18/21 09:57 GB (Rec: 06/18/21 10:08 GB [id number]) Nutrition Notes 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 Weight Status Appropriate Subjective/Other Information Appetite is good, no negative results indicated in physical assessment note with strength , weight is in normal range, 99% IBW, nutrition related labs 06/18 are mostly unremarkable, and no reported skin complications per admit assessment. Percent of energy/protein needs met: PO intake of meals 50% or greater will meet 75% or greater of estimated energy needs. Burn Absent Trauma Absent GI Symptoms Nausea Food Allergy No Skin Integrity/Comment No complications reported Current % PO Good (75-100%) Minimum of two criteria No #1 Nutrition Diagnosis No nutrition diagnosis at this time Etiology malnutrition screen referral As Evidenced by Signs and Symptoms good po, normal weight range, reported weight loss noted but no time fram indicated, strength reported as normal, 99% IBW, recent labs mostly within acceptable ranges. Diagnosis Progress(for reassessment Resolved documentation) Is patient on ventilator? No Is Patient Ambulatory and/or Out of Bed Yes REE-([facility]-ambulatory/OOB) [ [id number] [id number]] Kcal/Kg value to use for calculation 25 Approximate Energy Requirements Using 1400 kcal/Kg Calculation Used for Recommendations Kcal/kg Additional Notes Protein: 1-1.2 g/kg @ 56k -67g Fluids: 1 ml/kcal or per MD Nutrition Intervention Change Diet Order: continue Nutrition Support: n/a Add Supplement/Snack (indicate name/kcal n/a /protein ) Goal #1 PO intake of meals to be 50% or greater TID daily for LOS Goal #2 Weight to maintain within +/-3 % current weight for LOS Anticipated Discharge Needs: no nutritionally specialized instructions needed. Revisit per MD consult or patient Sign Off request:
[2021-06-19] MEDS ORDERED: predniSONE 10 MG TAB PO SCH (10:00)
[2021-06-19] MEDS: predniSONE 10 MG TAB PO SCH (10:50)
[2021-06-19] MEDS: predniSONE 5 MG TAB PO SCH (10:50)
[2021-06-19] MEDS: MORPHINE 2 MG/1 ML INJ IV PRN (23:49)
[2021-06-20] MEDS: HYDROcodone/ACETAMINOPHEN 5-325 MG TAB PO PRN ×3 (02:16→15:48)
[2021-06-20] MEDS: ONDANSETRON 4 MG/2 ML INJ IV PRN ×2 (02:16→15:55)
[2021-06-20] MEDS: SODIUM CHLORIDE 0.9% 1000 ML 1,000 ML IV SCH (02:22)
[2021-06-20] MEDS: MORPHINE 2 MG/1 ML INJ IV PRN ×5 (04:32→21:05)
[2021-06-20] MEDS: HEPARIN 5,000 UNIT/1 ML VIAL SUB-Q SCH ×4 (06:13→21:12)
--- NOTE | 2021-06-20 08:51 | Progress Note ---
Assessment and Plan Assessment and plan: 61-year-old female with a history of arthritis, tobacco abuse was admitted to the hospital with bilateral wrist pain. Patient reports a longstanding history of joint pains, she has a prior history of wrist fracture with indwelling hardware. She also reports following with rheumatology at [place] in the past, apparently was diagnosed as rheumatoid arthritis but methotrexate and steroids did not help. She has since stopped following up. About 2 weeks ago, she reports falling and since then her pain has worsened. She reports pain in bilateral wrists, elbow, shoulder as well as muscle pains. She also reports bilateral knee arthritis and pain and was supposedly scheduled for knee replacement. X-ray of the right wrist showed distal radius plate and screws, old avulsion of the ulnar styloid and some cortical loss along with swelling, this raises a question of osteomyelitis, hence infectious diseases was consulted. ID felt that the patient was not clinically consistent with osteomyelitis especially polyarticular involvement. Antibiotics were discontinued. Inflammatory markers were ordered. Recommendations was for follow-up with outpatient rheumatology. Rheumatoid arthritis flare Bilateral wrist pain Hyponatremia. Tobacco abuse DVT prophylaxis 06/17/2021. Await orthopedics and ID consultation. Continue IV antibiotics for now. Pain control 06/18/2021. Orthopedic and ID consultation does not feel that the patient's presentation is clinically consistent with osteomyelitis. Antibiotics discontinued. Follow-up inflammatory markers ESR, CRP, IAN, C3, C4, rheumatoid factor and anti-CCP. Await physical therapy evaluation for discharge planning 06/19/2021. We will initiate prednisone 15 mg daily for rheumatoid arthritis flare. Await PT evaluation. Follow-up inflammatory markers ESR, CRP, IAN, C3, C4, rheumatoid factor and anti-CCP. 06/20/2021. Continue prednisone 15 mg daily for rheumatoid arthritis flare. PT recommends discharge to acute rehab. Follow-up inflammatory markers ESR, CRP, IAN, C3, C4, rheumatoid factor and anti-CCP. Hyponatremia resolved. Case management consultation with regards to placement History Interval history: No new issues overnight. Hospitalist Physical - Constitutional Vitals: Temp Pulse Resp BP Pulse Ox 98.7 F 68 18 136/79 94 06/20/21 07:36 06/20/21 07:36 06/20/21 07:36 06/20/21 07:36 06/20/21 07:36 General appearance: Present: no acute distress, well-nourished - EENT Eyes: Present: PERRL, EOM intact ENT: hearing intact, clear oral mucosa, dentition normal - Neck Neck: Present: supple, normal ROM - Respiratory Respiratory effort: normal Respiratory: bilateral: CTA - Cardiovascular Rhythm: regular Heart Sounds: Present: S1 & S2. Absent: gallop, rub - Extremities Extremities: no ischemia, No edema, Full ROM - Abdominal General gastrointestinal: soft, non-tender, non-distended, normal bowel sounds - Integumentary Integumentary: Present: clear, warm, dry - Neurologic Neurologic: CNII-XII intact, moves all extremities Results - Labs CBC & Chem 7: 06/18/21 04:29 06/18/21 04:29 Labs: Laboratory Last Values WBC 7.6 K/mm3 (4.5-11.0) 06/18/21 04:29 RBC 3.09 M/mm3 (3.65-5.03) L 06/18/21 04:29 Hgb 8.7 gm/dl (10.1-14.3) L 06/18/21 04:29 Hct 26.7 % (30.3-42.9) L D 06/18/21 04:29 MCV 87 fl (79-97) 06/18/21 04:29 MCH 28 pg (28-32) 06/18/21 04:29 MCHC 33 % (30-34) 06/18/21 04:29 RDW 17.0 % (13.2-15.2) H 06/18/21 04:29 Plt Count 580 K/mm3 (140-440) H 06/18/21 04:29 Lymph % (Auto) 12.3 % (13.4-35.0) L 06/18/21 04:29 [place] % (Auto) 7.5 % (0.0-7.3) H 06/18/21 04:29 Eos % (Auto) 0.5 % (0.0-4.3) 06/18/21 04:29 Baso % (Auto) 0.5 % (0.0-1.8) 06/18/21 04:29 Lymph # (Auto) 0.9 K/mm3 (1.2-5.4) L 06/18/21 04:29 [place] # (Auto) 0.6 K/mm3 (0.0-0.8) 06/18/21 04:29 Eos # (Auto) 0.0 K/mm3 (0.0-0.4) 06/18/21 04:29 Baso # (Auto) 0.0 K/mm3 (0.0-0.1) 06/18/21 04:29 Seg Neutrophils % 79.2 % (40.0-70.0) H 06/18/21 04:29 Seg Neutrophils # 6.0 K/mm3 (1.8-7.7) 06/18/21 04:29 ESR 105 mm/Hr (0-20) 06/17/21 15:21 PT 15.5 Sec. (12.2-14.9) H 06/18/21 04:29 INR 1.18 (0.87-1.13) H 06/18/21 04:29 Sodium 137 mmol/L (137-145) 06/18/21 04:29 Potassium 4.1 mmol/L (3.6-5.0) 06/18/21 04:29 Chloride 103.6 mmol/L (98-107) 06/18/21 04:29 Carbon Dioxide 16 mmol/L (22-30) L D 06/18/21 04:29 Anion Gap 22 mmol/L 06/18/21 04:29 BUN 17 mg/dL (7-17) 06/18/21 04:29 Creatinine 0.4 mg/dL (0.6-1.2) L 06/18/21 04:29 Estimated GFR > 60 ml/min 06/18/21 04:29 BUN/Creatinine Ratio 43 % 06/18/21 04:29 Glucose 84 mg/dL (65-100) 06/18/21 04:29 Calcium 8.9 mg/dL (8.4-10.2) 06/18/21 04:29 Total Bilirubin 0.20 mg/dL (0.1-1.2) 06/17/21 01:02 AST 35 units/L (5-40) 06/17/21 01:02 ALT 16 units/L (7-56) 06/17/21 01:02 Alkaline Phosphatase 197 units/L (35-129) H 06/17/21 01:02 C-Reactive Protein 9.10 mg/dL (0.00-1.30) H 06/17/21 15:21 Total Protein 7.7 g/dL (6.3-8.2) 06/17/21 01:02 Albumin 3.2 g/dL (3.9-5) L 06/17/21 01:02 Albumin/Globulin Ratio 0.7 % 06/17/21 01:02 Rheumatoid Factor 21 IU/ml (0-13) H 06/17/21 15:21 [place]/IV: Voiding Method External Female Catheter Active Medications - Current Medications Current Medications: Generic Name Dose Route Start Last Admin Trade Name Freq PRN Reason Stop Dose Admin Acetaminophen 650 mg 06/17/21 05:07 06/17/21 08:42 Acetaminophen 325 Mg Tab PO 650 mg Q4H PRN Administration Pain MILD(1-3)/Fever >100.5/MENENDEZ Hydrocodone Bitart/Acetaminophen 1 each 06/17/21 16:24 06/20/21 02:16 Hydrocodone/Acetaminophen 5-325 Mg Tab PO 1 each Q6H PRN Administration Pain, Moderate (4-6) Heparin Sodium (Porcine) 5,000 unit 06/17/21 06:00 06/20/21 06:13 Heparin 5,000 Unit/1 Ml Vial SUB-Q Not Given Q8HR CHE Sodium Chloride 1,000 mls @ 75 mls/hr 06/17/21 05:15 06/20/21 02:22 Nacl 0.9% 1000 Ml IV 75 mls/hr DIRECT CHE Administration Magnesium Hydroxide 30 ml 06/17/21 05:07 Magnesium Hydroxide (Mom) Oral Liqd Udc PO Q4H PRN Constipation Morphine Sulfate 2 mg 06/17/21 05:07 06/20/21 08:37 Morphine 2 Mg/1 Ml Inj IV 2 mg Q4H PRN Administration Pain, Moderate (4-6) Morphine Sulfate 4 mg 06/17/21 05:07 06/19/21 19:09 Morphine 4 Mg/1 Ml Inj IV 4 mg Q4H PRN Administration Pain , Severe (7-10) Ondansetron HCl 4 mg 06/17/21 05:07 06/20/21 02:16 Ondansetron 4 Mg/2 Ml Inj IV 4 mg Q8H PRN Administration Nausea And Vomiting Prednisone 10 mg 06/19/21 10:00 06/19/21 10:50 Prednisone 10 Mg Tab PO 10 mg QDAY CHE Administration Prednisone 5 mg 06/19/21 10:00 06/19/21 10:50 Prednisone 5 Mg Tab PO 5 mg QDAY CHE Administration Sodium Chloride 10 ml 06/17/21 10:00 06/19/21 21:09 Sodium Chloride 0.9% 10 Ml Flush Syringe IV 10 ml BID CHE Administration Sodium Chloride 10 ml 06/17/21 05:07 06/19/21 06:44 Sodium Chloride 0.9% 10 Ml Flush Syringe IV 10 ml PRN PRN Administration LINE FLUSH Nutrition/Malnutrition Assess - Dietary Evaluation Nutrition/Malnutrition Findings: Nutrition Notes Start: 06/18/21 09:57 Freq: Status: Active Protocol: Document 06/18/21 09:57 GB (Rec: 06/18/21 10:08 GB [id number]) Nutrition Notes Need for Assessment generated from: healthcare interpreter Initial or Follow up Assessment Other Pertinent Diagnosis Referral for malnutrition screen result: at risk Current Diet Regular Labs/Tests 06/18: creatinine 0.4 Pertinent Medications NaCl Height 5 ft 5 in Weight 56 kg [place] Body Weight (kg) 56.81 BMI 20.5 Intake Prior to Admission Good Weight change and time frame Per admit assessment yes to unintentional weight loss of 34 LBs, with no time frame. Weight Status Appropriate Subjective/Other Information Appetite is good, no negative results indicated in physical assessment note with strength , weight is in normal range, 99% IBW, nutrition related labs 06/18 are mostly unremarkable, and no reported skin complications per admit assessment. Percent of energy/protein needs met: PO intake of meals 50% or greater will meet 75% or greater of estimated energy needs. Burn Absent Trauma Absent GI Symptoms Nausea Food Allergy No Skin Integrity/Comment No complications reported Current % PO Good (75-100%) Minimum of two criteria No #1 Nutrition Diagnosis No nutrition diagnosis at this time Etiology malnutrition screen referral As Evidenced by Signs and Symptoms good po, normal weight range, reported weight loss noted but no time fram indicated, strength reported as normal, 99% IBW, recent labs mostly within acceptable ranges. Diagnosis Progress(for reassessment Resolved documentation) Is patient on ventilator? No Is Patient Ambulatory and/or Out of Bed Yes REE-([place]-St. Jeor-ambulatory/OOB) [ 3276.644 NUTR.MSJOOB] Kcal/Kg value to use for calculation 25 Approximate Energy Requirements Using 1400 kcal/Kg Calculation Used for Recommendations Kcal/kg Additional Notes Protein: 1-1.2 g/kg @ 56k -67g Fluids: 1 ml/kcal or per MD Nutrition Intervention Change Diet Order: continue Nutrition Support: n/a Add Supplement/Snack (indicate name/kcal n/a /protein ) Goal #1 PO intake of meals to be 50% or greater TID daily for LOS Goal #2 Weight to maintain within +/-3 % current weight for LOS Anticipated Discharge Needs: no nutritionally specialized instructions needed. Revisit per MD consult or patient Sign Off request:
[2021-06-20] MEDS: predniSONE 10 MG TAB PO SCH (09:52)
[2021-06-20] MEDS: predniSONE 5 MG TAB PO SCH (09:53)
--- NOTE | 2021-06-20 12:46 | Progress Note ---
Assessment and Plan Cultures: None A/P: 61-year-old female with a history of arthritis, tobacco abuse: #Polyarthritis with deformities of bilateral wrists, also involvement of bilateral ankles, shoulders and knees: Has been evaluated by rheumatology in the past. Most of her symptoms and changes are chronic, no wounds externally. Right wrist x-ray findings are very nonspecific, she has had previous trauma, internal fixation surgery. Inflammatory markers may not be helpful to rule out infectious process especially if she has an underlying rheumatologic condition. No fever, no leukocytosis. Also, recent worsening may be related to a fall 2 weeks ago as mentioned by patient. This is not clinically consistent with osteomyelitis especially polyarticular involvement. Patient reports seeing rheumatology at [place], no records found. #Thrombocytosis Recs: Antibiotics discontinued ESR, CRP, IAN, C3, C4, rheumatoid factor, anti-CCP ordered Recommend follow-up with outpatient rheumatology ID will sign off. Please call questions. Luna Snell MD [facility] O: [phone] F: [phone] Subjective Date of service: 06/20/21 Interval history: Afebrile, normal white count. Objective - Exam Narrative Exam: Physical Exam: Constitutional: Alert, cooperative. No acute distress Head, Ears, Nose: Normocephalic, atraumatic. Eyes: Conjunctivae/corneas clear. No icterus. No ptosis. Neck: Supple, no meningeal signs Oral: Mask Cardiovascular: S1, S2 + Respiratory: Good air entry, clear to auscultation bilaterally GI: Soft, non-tender; bowel sounds normal. No peritoneal signs Musculoskeletal: Bilateral knees with swelling, tenderness. Bilateral wrists with surgical scar, swelling, tenderness, deformity. All large joints are tender. Skin: No rash or abscess Hem/Lymphatic: No palpable cervical or supraclavicular nodes. No lymphangitis Psych: Mood ok. Affect normal Neurological: Awake, alert, oriented. No gross abnormality - Constitutional Vitals: Vital Signs Temp Pulse Resp BP Pulse Ox 98.7 F 68 18 136/79 98 06/20/21 07:36 06/20/21 07:36 06/20/21 07:36 06/20/21 07:36 06/20/21 10:00 Temperature -Last 24 Hours Temperature 98.7 F Temperature 98.2 F Temperature 97.6 F Temperature 98.2 F Temperature 98.7 F - Labs CBC & Chem 7: 06/18/21 04:29 06/18/21 04:29
--- NOTE | 2021-06-20 13:04 | Progress Note ---
Assessment and Plan Rheumatoid Arthritis will try intra-articular injection with depomedrol 80mg and lidocaine, done w/o complication Subjective Date of service: 06/20/21 Interval history: Still c/o bilateral wrist/knee pain and swelling, reviewed xrays both knees findings c/w RA with [id number]-long contact... Objective Vital signs: Vital Signs - 12hr 06/20/21 06/20/21 06/20/21 03:56 07:36 10:00 Temperature 98.2 F 98.7 F Pulse Rate 60 68 Respiratory 16 18 Rate Blood Pressure 131/79 136/79 O2 Sat by Pulse 99 94 98 Oximetry Narrative Exam: BLE - knees - 1-2 effusion, no redness/erythema, no inc warmth palpated, decreased AROM - Labs CBC & BMP: 06/18/21 04:29 06/18/21 04:29
[2021-06-21] MEDS: HYDROcodone/ACETAMINOPHEN 5-325 MG TAB PO PRN ×4 (00:30→19:52)
[2021-06-21] MEDS: MORPHINE 2 MG/1 ML INJ IV PRN ×4 (02:34→22:00)
[2021-06-21 06:18] LABS: Basophils % (Auto) 0.4 % (0.0-1.8); Hematocrit 30.2 % (30.3-42.9); Hemoglobin 9.3 gm/dl (10.1-14.3); Lymphocytes # (Auto) 0.5 K/mm3 (1.2-5.4); Lymphocytes % (Auto) 7.1 % (13.4-35.0); Mean Corpuscular HGB Conc 31 % (30-34); Mean Corpuscular Volume 85 fl (79-97); Monocytes # (Auto) 0.2 K/mm3 (0.0-0.8); Monocytes % (Auto) 3.6 % (0.0-7.3); Platelet Count 683 K/mm3 (140-440); Red Blood Count 3.55 M/mm3 (3.65-5.03)
[2021-06-21] MEDS: SODIUM CHLORIDE 0.9% 1000 ML 1,000 ML IV SCH ×2 (06:21→21:59)
[2021-06-21] MEDS: HEPARIN 5,000 UNIT/1 ML VIAL SUB-Q SCH ×4 (06:21→22:04)
[2021-06-21 06:29] LABS: Blood Urea Nitrogen 7 mg/dL (7-17); Calcium 9.1 mg/dL (8.4-10.2); Hemolysis Index 1
[2021-06-21 06:37] LABS: BUN/Creatinine Ratio 23
[2021-06-21] MEDS: predniSONE 10 MG TAB PO SCH (10:01)
[2021-06-21] MEDS: predniSONE 5 MG TAB PO SCH (10:02)
--- NOTE | 2021-06-21 10:54 | Progress Note ---
Assessment and Plan Assessment and plan: 61-year-old female with a history of arthritis, tobacco abuse was admitted to the hospital with bilateral wrist pain. Patient reports a longstanding history of joint pains, she has a prior history of wrist fracture with indwelling hardware. She also reports following with rheumatology at [place] in the past, apparently was diagnosed as rheumatoid arthritis but methotrexate and steroids did not help. She has since stopped following up. About 2 weeks ago, she reports falling and since then her pain has worsened. She reports pain in bilateral wrists, elbow, shoulder as well as muscle pains. She also reports bilateral knee arthritis and pain and was supposedly scheduled for knee rep lacement. X-ray of the right wrist showed distal radius plate and screws, old avulsion of the ulnar styloid and some cortical loss along with swelling, this raises a question of osteomyelitis, hence infectious diseases was consulted. ID felt that the patient was not clinically consistent with osteomyelitis especially polyarticular involvement. Antibiotics were discontinued. Inflammatory markers were ordered. Recommendations was for follow-up with outpatient rheumatology. Rheumatoid arthritis flare Bilateral wrist pain Hyponatremia. Tobacco abuse DVT prophylaxis 06/17/2021. Await orthopedics and ID consultation. Continue IV antibiotics for now. Pain control 06/18/2021. Orthopedic and ID consultation does not feel that the patient's presentation is clinically consistent with osteomyelitis. Antibiotics discontinued. Follow-up inflammatory markers ESR, CRP, IAN, C3, C4, rheumatoid factor and anti-CCP. Await physical therapy evaluation for discharge planning 06/19/2021. We will initiate prednisone 15 mg daily for rheumatoid arthritis flare. Await PT evaluation. Follow-up inflammatory markers ESR, CRP, IAN, C3, C4, rheumatoid factor and anti-CCP. 06/20/2021. Continue prednisone 15 mg daily for rheumatoid arthritis flare. PT recommends discharge to acute rehab. Follow-up inflammatory markers ESR, CRP, IAN, C3, C4, rheumatoid factor and anti-CCP. Hyponatremia resolved. Case management consultation with regards to placement 06/21/2021 Patient with Rheumatoid arthritis flare. She was given bilateral knee intraarticular injections yesterday. She feels a little better. I discussed with her that she needs to follow up with [facility] as outpatient. History Interval history: Severe pain both knees and wrists Hospitalist Physical - Physical exam Narrative exam: Gen: Not in acute distress, lying in bed HEENT: Normocephalic, atraumatic Lungs: Clear to auscultation bilaterally, no wheeze Heart: S1 and S2 reg, no murmurs, rubs or gallop Abd:soft, non-tender, non distended, normal bowel sounds Ext: Swelling and tenderness both knees, swelling and tenderness both wrists Neuro: Awake, alert, oriented X 3, moves all extremities - Constitutional Vitals: Temp Pulse Resp BP Pulse Ox 96.7 F L 65 20 137/77 94 06/21/21 09:38 06/21/21 09:38 06/21/21 09:38 06/21/21 09:38 06/21/21 09:38 General appearance: Present: no acute distress, well-nourished Results - Labs CBC & Chem 7: 06/21/21 04:58 06/21/21 04:58 Labs: Laboratory Last Values WBC 6.6 K/mm3 (4.5-11.0) 06/21/21 04:58 RBC 3.55 M/mm3 (3.65-5.03) L 06/21/21 04:58 Hgb 9.3 gm/dl (10.1-14.3) L 06/21/21 04:58 Hct 30.2 % (30.3-42.9) L 06/21/21 04:58 MCV 85 fl (79-97) 06/21/21 04:58 MCH 26 pg (28-32) L 06/21/21 04:58 MCHC 31 % (30-34) 06/21/21 04:58 RDW 17.0 % (13.2-15.2) H 06/21/21 04:58 Plt Count 683 K/mm3 (140-440) H 06/21/21 04:58 Lymph % (Auto) 7.1 % (13.4-35.0) L 06/21/21 04:58 [place] % (Auto) 3.6 % (0.0-7.3) 06/21/21 04:58 Eos % (Auto) 0.0 % (0.0-4.3) 06/21/21 04:58 Baso % (Auto) 0.4 % (0.0-1.8) 06/21/21 04:58 Lymph # (Auto) 0.5 K/mm3 (1.2-5.4) L 06/21/21 04:58 [place] # (Auto) 0.2 K/mm3 (0.0-0.8) 06/21/21 04:58 Eos # (Auto) 0.0 K/mm3 (0.0-0.4) 06/21/21 04:58 Baso # (Auto) 0.0 K/mm3 (0.0-0.1) 06/21/21 04:58 Seg Neutrophils % 88.9 % (40.0-70.0) H 06/21/21 04:58 Seg Neutrophils # 5.8 K/mm3 (1.8-7.7) 06/21/21 04:58 ESR 105 mm/Hr (0-20) 06/17/21 15:21 PT 15.5 Sec. (12.2-14.9) H 06/18/21 04:29 INR 1.18 (0.87-1.13) H 06/18/21 04:29 Sodium 139 mmol/L (137-145) 06/21/21 04:58 Potassium 4.0 mmol/L (3.6-5.0) 06/21/21 04:58 Chloride 105.4 mmol/L (98-107) 06/21/21 04:58 Carbon Dioxide 23 mmol/L (22-30) D 06/21/21 04:58 Anion Gap 15 mmol/L 06/21/21 04:58 BUN 7 mg/dL (7-17) 06/21/21 04:58 Creatinine 0.3 mg/dL (0.6-1.2) L 06/21/21 04:58 Estimated GFR > 60 ml/min 06/21/21 04:58 BUN/Creatinine Ratio 23 % 06/21/21 04:58 Glucose 115 mg/dL (65-100) H 06/21/21 04:58 Calcium 9.1 mg/dL (8.4-10.2) 06/21/21 04:58 Total Bilirubin 0.20 mg/dL (0.1-1.2) 06/17/21 01:02 AST 35 units/L (5-40) 06/17/21 01:02 ALT 16 units/L (7-56) 06/17/21 01:02 Alkaline Phosphatase 197 units/L (35-129) H 06/17/21 01:02 C-Reactive Protein 9.10 mg/dL (0.00-1.30) H 06/17/21 15:21 Total Protein 7.7 g/dL (6.3-8.2) 06/17/21 01:02 Albumin 3.2 g/dL (3.9-5) L 06/17/21 01:02 Albumin/Globulin Ratio 0.7 % 06/17/21 01:02 Rheumatoid Factor 21 IU/ml (0-13) H 06/17/21 15:21 [place]/IV: Voiding Method External Female Catheter Active Medications - Current Medications Current Medications: Generic Name Dose Route Start Last Admin Trade Name Freq PRN Reason Stop Dose Admin Acetaminophen 650 mg 06/17/21 05:07 06/17/21 08:42 Acetaminophen 325 Mg Tab PO 650 mg Q4H PRN Administration Pain MILD(1-3)/Fever >100.5/MENENDEZ Hydrocodone Bitart/Acetaminophen 1 each 06/17/21 16:24 06/21/21 06:20 Hydrocodone/Acetaminophen 5-325 Mg Tab PO 1 each Q6H PRN Administration Pain, Moderate (4-6) Heparin Sodium (Porcine) 5,000 unit 06/17/21 06:00 06/21/21 06:25 Heparin 5,000 Unit/1 Ml Vial SUB-Q Not Given Q8HR CHE Sodium Chloride 1,000 mls @ 75 mls/hr 06/17/21 05:15 06/21/21 06:21 Nacl 0.9% 1000 Ml IV 75 mls/hr DIRECT CHE Administration Magnesium Hydroxide 30 ml 06/17/21 05:07 Magnesium Hydroxide (Mom) Oral Liqd Udc PO Q4H PRN Constipation Morphine Sulfate 2 mg 06/17/21 05:07 06/21/21 08:45 Morphine 2 Mg/1 Ml Inj IV 2 mg Q4H PRN Administration Pain, Moderate (4-6) Morphine Sulfate 4 mg 06/17/21 05:07 06/19/21 19:09 Morphine 4 Mg/1 Ml Inj IV 4 mg Q4H PRN Administration Pain , Severe (7-10) Ondansetron HCl 4 mg 06/17/21 05:07 06/20/21 15:55 Ondansetron 4 Mg/2 Ml Inj IV 4 mg Q8H PRN Administration Nausea And Vomiting Prednisone 10 mg 06/19/21 10:00 06/21/21 10:01 Prednisone 10 Mg Tab PO 10 mg QDAY CHE Administration Prednisone 5 mg 06/19/21 10:00 06/21/21 10:02 Prednisone 5 Mg Tab PO 5 mg QDAY CHE Administration Sodium Chloride 10 ml 06/17/21 10:00 06/21/21 10:03 Sodium Chloride 0.9% 10 Ml Flush Syringe IV 10 ml BID CHE Administration Sodium Chloride 10 ml 06/17/21 05:07 06/19/21 06:44 Sodium Chloride 0.9% 10 Ml Flush Syringe IV 10 ml PRN PRN Administration LINE FLUSH Nutrition/Malnutrition Assess - Dietary Evaluation Nutrition/Malnutrition Findings: Nutrition Notes Start: 06/18/21 09:57 Freq: Status: Active Protocol: Document 06/18/21 09:57 GB (Rec: 06/18/21 10:08 GB [id number]) Nutrition Notes Need for Assessment generated from: awning erector Initial or Follow up Assessment Other Pertinent Diagnosis Referral for malnutrition screen result: at risk Current Diet Regular Labs/Tests 06/18: creatinine 0.4 Pertinent Medications NaCl Height 5 ft 5 in Weight 56 kg [place] Body Weight (kg) 56.81 BMI 20.5 Intake Prior to Admission Good Weight change and time frame Per admit assessment yes to unintentional weight loss of 34 LBs, with no time frame. Weight Status Appropriate Subjective/Other Information Appetite is good, no negative results indicated in physical assessment note with strength , weight is in normal range, 99% IBW, nutrition related labs 06/18 are mostly unremarkable, and no reported skin complications per admit assessment. Percent of energy/protein needs met: PO intake of meals 50% or greater will meet 75% or greater of estimated energy needs. Burn Absent Trauma Absent GI Symptoms Nausea Food Allergy No Skin Integrity/Comment No complications reported Current % PO Good (75-100%) Minimum of two criteria No #1 Nutrition Diagnosis No nutrition diagnosis at this time Etiology malnutrition screen referral As Evidenced by Signs and Symptoms good po, normal weight range, reported weight loss noted but no time fram indicated, strength reported as normal, 99% IBW, recent labs mostly within acceptable ranges. Diagnosis Progress(for reassessment Resolved documentation) Is patient on ventilator? No Is Patient Ambulatory and/or Out of Bed Yes REE-([place]-St. Jeor-ambulatory/OOB) [ 1476.644 NUTR.MSJOOB] Kcal/Kg value to use for calculation 25 Approximate Energy Requirements Using 1400 kcal/Kg Calculation Used for Recommendations Kcal/kg Additional Notes Protein: 1-1.2 g/kg @ 56k -67g Fluids: 1 ml/kcal or per MD Nutrition Intervention Change Diet Order: continue Nutrition Support: n/a Add Supplement/Snack (indicate name/kcal n/a /protein ) Goal #1 PO intake of meals to be 50% or greater TID daily for LOS Goal #2 Weight to maintain within +/-3 % current weight for LOS Anticipated Discharge Needs: no nutritionally specialized instructions needed. Revisit per MD consult or patient Sign Off request:
[2021-06-22] MEDS: MORPHINE 2 MG/1 ML INJ IV PRN ×5 (02:28→20:59)
[2021-06-22] MEDS: HYDROcodone/ACETAMINOPHEN 5-325 MG TAB PO PRN ×4 (02:28→22:46)
[2021-06-22] MEDS: HEPARIN 5,000 UNIT/1 ML VIAL SUB-Q SCH ×3 (06:45→21:10)
[2021-06-22] MEDS: predniSONE 10 MG TAB PO SCH (09:02)
[2021-06-22] MEDS: predniSONE 5 MG TAB PO SCH (09:02)
[2021-06-22] MEDS: SODIUM CHLORIDE 0.9% 1000 ML 1,000 ML IV SCH (11:28)
--- NOTE | 2021-06-22 14:46 | Progress Note ---
Assessment and Plan Assessment and plan: 61-year-old female with a history of arthritis, tobacco abuse was admitted to the hospital with bilateral wrist pain. Patient reports a longstanding history of joint pains, she has a prior history of wrist fracture with indwelling hardware. She also reports following with rheumatology at [place] in the past, apparently was diagnosed as rheumatoid arthritis but methotrexate and steroids did not help. She has since stopped following up. About 2 weeks ago, she reports falling and since then her pain has worsened. She reports pain in bilateral wrists, elbow, shoulder as well as muscle pains. She also reports bilateral knee arthritis and pain and was supposedly scheduled for knee rep lacement. X-ray of the right wrist showed distal radius plate and screws, old avulsion of the ulnar styloid and some cortical loss along with swelling, this raises a question of osteomyelitis, hence infectious diseases was consulted. ID felt that the patient was not clinically consistent with osteomyelitis especially polyarticular involvement. Antibiotics were discontinued. Inflammatory markers were ordered. Recommendations was for follow-up with outpatient rheumatology. Rheumatoid arthritis flare Bilateral wrist pain Hyponatremia. Tobacco abuse DVT prophylaxis 06/17/2021. Await orthopedics and ID consultation. Continue IV antibiotics for now. Pain control 06/18/2021. Orthopedic and ID consultation does not feel that the patient's presentation is clinically consistent with osteomyelitis. Antibiotics discontinued. Follow-up inflammatory markers ESR, CRP, IAN, C3, C4, rheumatoid factor and anti-CCP. Await physical therapy evaluation for discharge planning 06/19/2021. We will initiate prednisone 15 mg daily for rheumatoid arthritis flare. Await PT evaluation. Follow-up inflammatory markers ESR, CRP, IAN, C3, C4, rheumatoid factor and anti-CCP. 06/20/2021. Continue prednisone 15 mg daily for rheumatoid arthritis flare. PT recommends discharge to acute rehab. Follow-up inflammatory markers ESR, CRP, IAN, C3, C4, rheumatoid factor and anti-CCP. Hyponatremia resolved. Case management consultation with regards to placement 06/21/2021 Patient with Rheumatoid arthritis flare. She was given bilateral knee intraarticular injections yesterday. She feels a little better. I discussed with her that she needs to follow up with [facility] as outpatient. 06/22/2021 Patient with Rheumatoid arthritis flare. She was given bilateral knee intra-articular injections 2 days ago , on 06/20/21. She feels a little better. I discussed with her that she needs to follow up with [facility] as outpatient. She tells me that she has called a [facility] in [place] and made an appointment. Patient tells me she does not want to go to SNF but p refers home with home health. I discussed this with Case Management History Interval history: Severe pain both knees and wrists Hospitalist Physical - Physical exam Narrative exam: Gen: Not in acute distress, lying in bed HEENT: Normocephalic, atraumatic Lungs: Clear to auscultation bilaterally, no wheeze Heart: S1 and S2 reg, no murmurs, rubs or gallop Abd:soft, non-tender, non distended, normal bowel sounds Ext: Swelling and tenderness both knees, swelling and tenderness both wrists Neuro: Awake, alert, oriented X 3, moves all extremities - Constitutional Vitals: Temp Pulse Resp BP Pulse Ox 97.9 F 60 18 143/90 98 06/22/21 12:10 06/22/21 12:10 06/22/21 12:10 06/22/21 12:10 06/22/21 12:10 General appearance: Present: no acute distress, well-nourished Results - Labs CBC & Chem 7: 06/21/21 04:58 06/21/21 04:58 Labs: Laboratory Last Values WBC 6.6 K/mm3 (4.5-11.0) 06/21/21 04:58 RBC 3.55 M/mm3 (3.65-5.03) L 06/21/21 04:58 Hgb 9.3 gm/dl (10.1-14.3) L 06/21/21 04:58 Hct 30.2 % (30.3-42.9) L 06/21/21 04:58 MCV 85 fl (79-97) 06/21/21 04:58 MCH 26 pg (28-32) L 06/21/21 04:58 MCHC 31 % (30-34) 06/21/21 04:58 RDW 17.0 % (13.2-15.2) H 06/21/21 04:58 Plt Count 683 K/mm3 (140-440) H 06/21/21 04:58 Lymph % (Auto) 7.1 % (13.4-35.0) L 06/21/21 04:58 [place] % (Auto) 3.6 % (0.0-7.3) 06/21/21 04:58 Eos % (Auto) 0.0 % (0.0-4.3) 06/21/21 04:58 Baso % (Auto) 0.4 % (0.0-1.8) 06/21/21 04:58 Lymph # (Auto) 0.5 K/mm3 (1.2-5.4) L 06/21/21 04:58 [place] # (Auto) 0.2 K/mm3 (0.0-0.8) 06/21/21 04:58 Eos # (Auto) 0.0 K/mm3 (0.0-0.4) 06/21/21 04:58 Baso # (Auto) 0.0 K/mm3 (0.0-0.1) 06/21/21 04:58 Seg Neutrophils % 88.9 % (40.0-70.0) H 06/21/21 04:58 Seg Neutrophils # 5.8 K/mm3 (1.8-7.7) 06/21/21 04:58 ESR 105 mm/Hr (0-20) 06/17/21 15:21 PT 15.5 Sec. (12.2-14.9) H 06/18/21 04:29 INR 1.18 (0.87-1.13) H 06/18/21 04:29 Sodium 139 mmol/L (137-145) 06/21/21 04:58 Potassium 4.0 mmol/L (3.6-5.0) 06/21/21 04:58 Chloride 105.4 mmol/L (98-107) 06/21/21 04:58 Carbon Dioxide 23 mmol/L (22-30) D 06/21/21 04:58 Anion Gap 15 mmol/L 06/21/21 04:58 BUN 7 mg/dL (7-17) 06/21/21 04:58 Creatinine 0.3 mg/dL (0.6-1.2) L 06/21/21 04:58 Estimated GFR > 60 ml/min 06/21/21 04:58 BUN/Creatinine Ratio 23 % 06/21/21 04:58 Glucose 115 mg/dL (65-100) H 06/21/21 04:58 Calcium 9.1 mg/dL (8.4-10.2) 06/21/21 04:58 Total Bilirubin 0.20 mg/dL (0.1-1.2) 06/17/21 01:02 AST 35 units/L (5-40) 06/17/21 01:02 ALT 16 units/L (7-56) 06/17/21 01:02 Alkaline Phosphatase 197 units/L (35-129) H 06/17/21 01:02 C-Reactive Protein 9.10 mg/dL (0.00-1.30) H 06/17/21 15:21 Total Protein 7.7 g/dL (6.3-8.2) 06/17/21 01:02 Albumin 3.2 g/dL (3.9-5) L 06/17/21 01:02 Albumin/Globulin Ratio 0.7 % 06/17/21 01:02 Rheumatoid Factor 21 IU/ml (0-13) H 06/17/21 15:21 [place]/IV: Voiding Method External Female Catheter Active Medications - Current Medications Current Medications: Generic Name Dose Route Start Last Admin Trade Name Freq PRN Reason Stop Dose Admin Acetaminophen 650 mg 06/17/21 05:07 06/17/21 08:42 Acetaminophen 325 Mg Tab PO 650 mg Q4H PRN Administration Pain MILD(1-3)/Fever >100.5/MENENDEZ Hydrocodone Bitart/Acetaminophen 1 each 06/17/21 16:24 06/22/21 09:02 Hydrocodone/Acetaminophen 5-325 Mg Tab PO 1 each Q6H PRN Administration Pain, Moderate (4-6) Heparin Sodium (Porcine) 5,000 unit 06/17/21 06:00 06/22/21 14:12 Heparin 5,000 Unit/1 Ml Vial SUB-Q Not Given Q8HR CHE Sodium Chloride 1,000 mls @ 75 mls/hr 06/17/21 05:15 06/22/21 11:28 Nacl 0.9% 1000 Ml IV 75 mls/hr DIRECT CHE Administration Magnesium Hydroxide 30 ml 06/17/21 05:07 Magnesium Hydroxide (Mom) Oral Liqd Udc PO Q4H PRN Constipation Morphine Sulfate 2 mg 06/17/21 05:07 06/22/21 11:28 Morphine 2 Mg/1 Ml Inj IV 2 mg Q4H PRN Administration Pain, Moderate (4-6) Morphine Sulfate 4 mg 06/17/21 05:07 06/19/21 19:09 Morphine 4 Mg/1 Ml Inj IV 4 mg Q4H PRN Administration Pain , Severe (7-10) Ondansetron HCl 4 mg 06/17/21 05:07 06/20/21 15:55 Ondansetron 4 Mg/2 Ml Inj IV 4 mg Q8H PRN Administration Nausea And Vomiting Prednisone 10 mg 06/19/21 10:00 06/22/21 09:02 Prednisone 10 Mg Tab PO 10 mg QDAY CHE Administration Prednisone 5 mg 06/19/21 10:00 06/22/21 09:02 Prednisone 5 Mg Tab PO 5 mg QDAY CHE Administration Sodium Chloride 10 ml 06/17/21 10:00 06/22/21 09:02 Sodium Chloride 0.9% 10 Ml Flush Syringe IV 10 ml BID CHE Administration Sodium Chloride 10 ml 06/17/21 05:07 06/19/21 06:44 Sodium Chloride 0.9% 10 Ml Flush Syringe IV 10 ml PRN PRN Administration LINE FLUSH Nutrition/Malnutrition Assess - Dietary Evaluation Nutrition/Malnutrition Findings: Nutrition Notes Start: 06/18/21 09:57 Freq: Status: Active Protocol: Document 06/18/21 09:57 GB (Rec: 06/18/21 10:08 GB [id number]) Nutrition 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 Weight Status Appropriate Subjective/Other Information Appetite is good, no negative results indicated in physical assessment note with strength , weight is in normal range, 99% IBW, nutrition related labs 06/18 are mostly unremarkable, and no reported skin complications per admit assessment. Percent of energy/protein needs met: PO intake of meals 50% or greater will meet 75% or greater of estimated energy needs. Burn Absent Trauma Absent GI Symptoms Nausea Food Allergy No Skin Integrity/Comment No complications reported Current % PO Good (75-100%) Minimum of two criteria No #1 Nutrition Diagnosis No nutrition diagnosis at this time Etiology malnutrition screen referral As Evidenced by Signs and Symptoms good po, normal weight range, reported weight loss noted but no time fram indicated, strength reported as normal, 99% IBW, recent labs mostly within acceptable ranges. Diagnosis Progress(for reassessment Resolved documentation) Is patient on ventilator? No Is Patient Ambulatory and/or Out of Bed Yes REE-([place]-ambulatory/OOB) [ 4646.644 NUTR.MSJOOB] Kcal/Kg value to use for calculation 25 Approximate Energy Requirements Using 1400 kcal/Kg Calculation Used for Recommendations Kcal/kg Additional Notes Protein: 1-1.2 g/kg @ 56k -67g Fluids: 1 ml/kcal or per MD Nutrition Intervention Change Diet Order: continue Nutrition Support: n/a Add Supplement/Snack (indicate name/kcal n/a /protein ) Goal #1 PO intake of meals to be 50% or greater TID daily for LOS Goal #2 Weight to maintain within +/-3 % current weight for LOS Anticipated Discharge Needs: no nutritionally specialized instructions needed. Revisit per MD consult or patient Sign Off request:
[2021-06-23] MEDS: MORPHINE 2 MG/1 ML INJ IV PRN ×6 (00:07→18:30)
[2021-06-23] MEDS: SODIUM CHLORIDE 0.9% 1000 ML 1,000 ML IV SCH (00:08)
[2021-06-23 00:28] LABS: ANA Screen, IFA Negative (Negative)
[2021-06-23] MEDS: HYDROcodone/ACETAMINOPHEN 5-325 MG TAB PO PRN ×2 (06:21→15:15)
[2021-06-23] MEDS: HEPARIN 5,000 UNIT/1 ML VIAL SUB-Q SCH ×2 (06:55→14:35)
[2021-06-23] MEDS: predniSONE 5 MG TAB PO SCH (10:19)
[2021-06-23] MEDS: predniSONE 10 MG TAB PO SCH (10:21)
--- NOTE | 2021-06-23 14:02 | Progress Note ---
Assessment and Plan Assessment and plan: 61-year-old female with a history of arthritis, tobacco abuse was admitted to the hospital with bilateral wrist pain. Patient reports a longstanding history of joint pains, she has a prior history of wrist fracture with indwelling hardware. She also reports following with rheumatology at [facility] in the past, apparently was diagnosed as rheumatoid arthritis but methotrexate and steroids did not help. She has since stopped following up. About 2 weeks ago, she reports falling and since then her pain has worsened. She reports pain in bilateral wrists, elbow, shoulder as well as muscle pains. She also reports bilateral knee arthritis and pain and was supposedly scheduled for knee rep lacement. X-ray of the right wrist showed distal radius plate and screws, old avulsion of the ulnar styloid and some cortical loss along with swelling, this raises a question of osteomyelitis, hence infectious diseases was consulted. ID felt that the patient was not clinically consistent with osteomyelitis especially polyarticular involvement. Antibiotics were discontinued. Inflammatory markers were ordered. Recommendations was for follow-up with outpatient rheumatology. Rheumatoid arthritis flare Bilateral wrist pain Hyponatremia. Tobacco abuse DVT prophylaxis 06/17/2021. Await orthopedics and ID consultation. Continue IV antibiotics for now. Pain control 06/18/2021. Orthopedic and ID consultation does not feel that the patient's presentation is clinically consistent with osteomyelitis. Antibiotics discontinued. Follow-up inflammatory markers ESR, CRP, IAN, C3, C4, rheumatoid factor and anti-CCP. Await physical therapy evaluation for discharge planning 06/19/2021. We will initiate prednisone 15 mg daily for rheumatoid arthritis flare. Await PT evaluation. Follow-up inflammatory markers ESR, CRP, IAN, C3, C4, rheumatoid factor and anti-CCP. 06/20/2021. Continue prednisone 15 mg daily for rheumatoid arthritis flare. PT recommends discharge to acute rehab. Follow-up inflammatory markers ESR, CRP, IAN, C3, C4, rheumatoid factor and anti-CCP. Hyponatremia resolved. Case management consultation with regards to placement 06/21/2021 Patient with Rheumatoid arthritis flare. She was given bilateral knee intraarticular injections yesterday. She feels a little better. I discussed with her that she needs to follow up with [facility] as outpatient. 06/22/2021 Patient with Rheumatoid arthritis flare. She was given bilateral knee intra-articular injections 2 days ago , on 06/20/21. She feels a little better. I discussed with her that she needs to follow up with [facility] as outpatient. She tells me that she has called a [facility] in [place] and made an appointment. Patient tells me she does not want to go to SNF but p refers home with home health. I discussed this with Case Management 06/23/2021 Patient noted bilateral upper extremity and shoulder pain is uncontrolled by current narcotic analgesic. She has an appointment to follow-up with her bracelet former on 06/28/2021 at 10 AM. We will start Toradol 15 mg IV every 6 hours for the next 24 hours per discussion with her. Also discussed that she will not be discharged home with narcotic analgesic. Continue current dose of prednisone. Possible discharge home tomorrow with home health PT. History Interval history: History of bilateral shoulder, elbow, wrist pain. Noted current narcotic analgesic relieves the pain for a few minutes. No fever or chills. She has made appointment to follow-up with her [facility] former outpatient 06/28/2021 at 10 AM. Hospitalist Physical - Constitutional Vitals: Temp Pulse Resp BP Pulse Ox 98.0 F 66 20 163/103 98 06/23/21 08:30 06/23/21 08:30 06/23/21 13:31 06/23/21 08:30 06/23/21 08:30 General appearance: Present: no acute distress, well-nourished - EENT Eyes: Present: PERRL, EOM intact ENT: hearing intact, clear oral mucosa - Neck Neck: Present: supple, normal ROM - Respiratory Respiratory effort: normal Respiratory: bilateral: CTA - Cardiovascular Rhythm: regular Heart Sounds: Present: S1 & S2 - Extremities Extremity abnormal: edema (Right knee) - Abdominal General gastrointestinal: soft, non-tender, non-distended, normal bowel sounds - Integumentary Integumentary: Present: clear, warm, dry - Psychiatric Psychiatric: appropriate mood/affect Results - Labs CBC & Chem 7: 06/21/21 04:58 06/21/21 04:58 Labs: Laboratory Last Values WBC 6.6 K/mm3 (4.5-11.0) 06/21/21 04:58 RBC 3.55 M/mm3 (3.65-5.03) L 06/21/21 04:58 Hgb 9.3 gm/dl (10.1-14.3) L 06/21/21 04:58 Hct 30.2 % (30.3-42.9) L 06/21/21 04:58 MCV 85 fl (79-97) 06/21/21 04:58 MCH 26 pg (28-32) L 06/21/21 04:58 MCHC 31 % (30-34) 06/21/21 04:58 RDW 17.0 % (13.2-15.2) H 06/21/21 04:58 Plt Count 683 K/mm3 (140-440) H 06/21/21 04:58 Lymph % (Auto) 7.1 % (13.4-35.0) L 06/21/21 04:58 [place] % (Auto) 3.6 % (0.0-7.3) 06/21/21 04:58 Eos % (Auto) 0.0 % (0.0-4.3) 06/21/21 04:58 Baso % (Auto) 0.4 % (0.0-1.8) 06/21/21 04:58 Lymph # (Auto) 0.5 K/mm3 (1.2-5.4) L 06/21/21 04:58 [place] # (Auto) 0.2 K/mm3 (0.0-0.8) 06/21/21 04:58 Eos # (Auto) 0.0 K/mm3 (0.0-0.4) 06/21/21 04:58 Baso # (Auto) 0.0 K/mm3 (0.0-0.1) 06/21/21 04:58 Seg Neutrophils % 88.9 % (40.0-70.0) H 06/21/21 04:58 Seg Neutrophils # 5.8 K/mm3 (1.8-7.7) 06/21/21 04:58 ESR 105 mm/Hr (0-20) 06/17/21 15:21 PT 15.5 Sec. (12.2-14.9) H 06/18/21 04:29 INR 1.18 (0.87-1.13) H 06/18/21 04:29 Sodium 139 mmol/L (137-145) 06/21/21 04:58 Potassium 4.0 mmol/L (3.6-5.0) 06/21/21 04:58 Chloride 105.4 mmol/L (98-107) 06/21/21 04:58 Carbon Dioxide 23 mmol/L (22-30) D 06/21/21 04:58 Anion Gap 15 mmol/L 06/21/21 04:58 BUN 7 mg/dL (7-17) 06/21/21 04:58 Creatinine 0.3 mg/dL (0.6-1.2) L 06/21/21 04:58 Estimated GFR > 60 ml/min 06/21/21 04:58 BUN/Creatinine Ratio 23 % 06/21/21 04:58 Glucose 115 mg/dL (65-100) H 06/21/21 04:58 Calcium 9.1 mg/dL (8.4-10.2) 06/21/21 04:58 Total Bilirubin 0.20 mg/dL (0.1-1.2) 06/17/21 01:02 AST 35 units/L (5-40) 06/17/21 01:02 ALT 16 units/L (7-56) 06/17/21 01:02 Alkaline Phosphatase 197 units/L (35-129) H 06/17/21 01:02 C-Reactive Protein 9.10 mg/dL (0.00-1.30) H 06/17/21 15:21 Total Protein 7.7 g/dL (6.3-8.2) 06/17/21 01:02 Albumin 3.2 g/dL (3.9-5) L 06/17/21 01:02 Albumin/Globulin Ratio 0.7 % 06/17/21 01:02 Rheumatoid Factor 21 IU/ml (0-13) H 06/17/21 15:21 IAN Screen Negative (Negative) 06/17/21 15:21 Complement C3 189 mg/dL (83-193) 06/17/21 15:21 Complement C4 44 mg/dL (15-57) 06/17/21 15:21 [place]/IV: Voiding Method External Female Catheter Active Medications - Current Medications Current Medications: Generic Name Dose Route Start Last Admin Trade Name Freq PRN Reason Stop Dose Admin Acetaminophen 650 mg 06/17/21 05:07 06/17/21 08:42 Acetaminophen 325 Mg Tab PO 650 mg Q4H PRN Administration Pain MILD(1-3)/Fever >100.5/MENENDEZ Hydrocodone Bitart/Acetaminophen 1 each 06/17/21 16:24 06/23/21 06:21 Hydrocodone/Acetaminophen 5-325 Mg Tab PO 1 each Q6H PRN Administration Pain, Moderate (4-6) Heparin Sodium (Porcine) 5,000 unit 06/17/21 06:00 06/23/21 06:55 Heparin 5,000 Unit/1 Ml Vial SUB-Q Not Given Q8HR CHE Sodium Chloride 1,000 mls @ 75 mls/hr 06/17/21 05:15 06/23/21 00:08 Nacl 0.9% 1000 Ml IV 75 mls/hr DIRECT CHE Administration Magnesium Hydroxide 30 ml 06/17/21 05:07 Magnesium Hydroxide (Mom) Oral Liqd Udc PO Q4H PRN Constipation Morphine Sulfate 2 mg 06/17/21 05:07 06/23/21 13:31 Morphine 2 Mg/1 Ml Inj IV 2 mg Q4H PRN Administration Pain, Moderate (4-6) Morphine Sulfate 4 mg 06/17/21 05:07 06/19/21 19:09 Morphine 4 Mg/1 Ml Inj IV 4 mg Q4H PRN Administration Pain , Severe (7-10) Ondansetron HCl 4 mg 06/17/21 05:07 06/20/21 15:55 Ondansetron 4 Mg/2 Ml Inj IV 4 mg Q8H PRN Administration Nausea And Vomiting Prednisone 10 mg 06/19/21 10:00 06/23/21 10:21 Prednisone 10 Mg Tab PO 10 mg QDAY CHE Administration Prednisone 5 mg 06/19/21 10:00 06/23/21 10:19 Prednisone 5 Mg Tab PO 5 mg QDAY CHE Administration Sodium Chloride 10 ml 06/17/21 10:00 06/23/21 10:21 Sodium Chloride 0.9% 10 Ml Flush Syringe IV 10 ml BID CHE Administration Sodium Chloride 10 ml 06/17/21 05:07 06/19/21 06:44 Sodium Chloride 0.9% 10 Ml Flush Syringe IV 10 ml PRN PRN Administration LINE FLUSH Nutrition/Malnutrition Assess - Dietary Evaluation Nutrition/Malnutrition Findings: Nutrition Notes Start: 06/18/21 09:57 Freq: Status: Active Protocol: Document 06/18/21 09:57 GB (Rec: 10/02/21 10:08 GB [id number]) Nutrition 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 Weight Status Appropriate Subjective/Other Information Appetite is good, no negative results indicated in physical assessment note with strength , weight is in normal range, 99% IBW, nutrition related labs 06/18 are mostly unremarkable, and no reported skin complications per admit assessment. Percent of energy/protein needs met: PO intake of meals 50% or greater will meet 75% or greater of estimated energy needs. Burn Absent Trauma Absent GI Symptoms Nausea Food Allergy No Skin Integrity/Comment No complications reported Current % PO Good (75-100%) Minimum of two criteria No #1 Nutrition Diagnosis No nutrition diagnosis at this time Etiology malnutrition screen referral As Evidenced by Signs and Symptoms good po, normal weight range, reported weight loss noted but no time fram indicated, strength reported as normal, 99% IBW, recent labs mostly within acceptable ranges. Diagnosis Progress(for reassessment Resolved documentation) Is patient on ventilator? No Is Patient Ambulatory and/or Out of Bed Yes REE-([facility]-ambulatory/OOB) [ 1476.644 NUTR.MSJOOB] Kcal/Kg value to use for calculation 25 Approximate Energy Requirements Using 1400 kcal/Kg Calculation Used for Recommendations Kcal/kg Additional Notes Protein: 1-1.2 g/kg @ 56k -67g Fluids: 1 ml/kcal or per MD Nutrition Intervention Change Diet Order: continue Nutrition Support: n/a Add Supplement/Snack (indicate name/kcal n/a /protein ) Goal #1 PO intake of meals to be 50% or greater TID daily for LOS Goal #2 Weight to maintain within +/-3 % current weight for LOS Anticipated Discharge Needs: no nutritionally specialized instructions needed. Revisit per MD consult or patient Sign Off request:
[2021-06-23] MEDS: KETOROLAC 30 MG/1 ML INJ IV SCH ×2 (15:20→21:19)
[2021-06-23] MEDS: PANTOPRAZOLE 40 MG TAB PO SCH (20:04)
[2021-06-24] MEDS: HEPARIN 5,000 UNIT/1 ML VIAL SUB-Q SCH ×3 (00:28→14:37)
[2021-06-24] MEDS: KETOROLAC 30 MG/1 ML INJ IV SCH ×3 (01:28→14:38)
[2021-06-24 04:54] VITALS: BP 171/98
[2021-06-24] MEDS: SODIUM CHLORIDE 0.9% 1000 ML 1,000 ML IV SCH (05:49)
[2021-06-24] MEDS: MORPHINE 2 MG/1 ML INJ IV PRN (10:37)
[2021-06-24] MEDS: predniSONE 5 MG TAB PO SCH (10:38)
[2021-06-24] MEDS: PANTOPRAZOLE 40 MG TAB PO SCH (10:38)
[2021-06-24] MEDS: predniSONE 10 MG TAB PO SCH (10:38)
--- NOTE | 2021-06-24 11:41 | Discharge Summary ---
Providers - Providers Date of Admission: 06/19/21 14:44 Date of discharge: 06/24/21 Attending physician: WILLIAM NICKERSON MD 06/17/21 03:45 Consult to Case Management [CONS] Stat Services Needed at Discharge: Director Of Assisted Living Notified:: yes 06/17/21 04:31 Consult to Physician [CONS] Stat Comment: Consulting Provider: MODESTO WILLETT Physician Instructions: Reason For Exam: osteo 06/17/21 07:43 Consult to Physician [CONS] Routine Comment: Consulting Provider: DAMON MALIK Physician Instructions: Reason For Exam: ? osteo 06/17/21 12:19 Physical Therapy Evaluation and Treat [CONS] Urgent Comment: Reason For Exam: PT to eval & Treat - to assess mobility status 06/17/21 12:21 Occupational Therapy Evaluate and Treat [CONS] Urgent Comment: to assess functioning ADL status Reason For Exam: Occupational Theraphy to eval & treat 06/18/21 07:47 Physical Therapy Evaluation and Treat [CONS] Routine Comment: Reason For Exam: eval mobility Primary care physician: COREMAKER APPRENTICE Hospitalization Reason for admission: Joint pain Condition: Critical Hospital course: A 61-year-old female with a history of arthritis, tobacco abuse was admitted to the hospital with bilateral wrist pain. Patient reports a longstanding history of joint pains, she has a prior history of wrist fracture with indwelling hardware. She also reports following with rheumatology at [facility] in the past, apparently was diagnosed as rheumatoid arthritis but methotrexate and steroids did not help. She has since stopped following up. About 2 weeks prior to presentation to ER, she reported falling and since then her pain has worsened. She presented with complaints of pain pain in bilateral wrists, elbow, shoulder, and bilateral knee pain.she noted she was supposed to have scheduled for knee replacement. X-ray of the right wrist showed distal radius plate and screws, old avulsion of the ulnar styloid and some cortical loss along with swelling, this raises a question of osteomyelitis, hence infectious diseases was consulted. ID felt that the patient was not clinically consistent with o steomyelitis especially polyarticular involvement. Antibiotics were discontinued. Inflammatory markers were ordered. She was started on prednisone. She was on as needed analgesic. Was started on Toradol in ED prior to discharge patient reported improved pain. She was seen by the orthopedic surgeon and had bilateral knee intra-articular injections. She was able to schedule outpatient appointment with her motorcycle mechanic on 06/28/2021 at 10 AM. She was evaluated by PT with recommendation for rehab placement however patient declined and wanted to go home with home health PT. She had hyponatremia which resolved. She was counseled on tobacco abuse. Disposition: 01 HOME / SELF CARE / HOMELESS Final Discharge Diagnosis (Prints w/discharge instructions): Multiple joint pain. Rheumatoid arthritis with exacerbation. Bilateral knee osteoarthritis. Core Measure Documentation - Palliative Care Palliative Care/ Comfort Measures: Not Applicable - Core Measures Any of the following diagnoses?: none - VTE Discharge Requirements Deep Vein Thrombosis/Pulmonary Embolism Present on Admission: No Has pt received <5 days of overlap therapy or INR<2.0: No Anticoagulant overlap therapy prescribed at discharge: No Contraindication No Overlap Therapy order at DC: Not Indicated - Acute VT Discharge Requirements Aspirin at discharge: No Reason for no aspirin on DC: Medical contraindication SRIKANTH/ARB for LVSD if EF <40%: Not Applicable Reason for no SRIKANTH/ARB: Medical contraindication Beta goyo at discharge: No Reason for no beta goyo on DC: Medical contraindication Statin for LDL = or >100 mg/dl on DC: Not Applicable Reason for no statin on DC: Medical contraindication - Heart Failure Discharge Requirements SRIKANTH/ARB for LVSD if EF <40%: Not Applicable Reason for no SRIKANTH/ARB: Medical contraindication Beta goyo at discharge: No Reason for no beta goyo on DC: Medical contraindication - Stroke Discharge Requirements Statin for LDL = or >70 mg/dl on DC: Not Applicable Reason for no statin on DC: Not Indicated Anticoag for atrial fib/atrial flutter: Not Applicable Reason for no anticoag for AF/F on DC: Not Indicated Antithrombotic for ischemic stroke: No Reason for no antithrombotic on DC: Not Indicated Exam - Constitutional Vitals: Temp Pulse Resp BP Pulse Ox 97.9 F 61 20 171/98 97 06/24/21 04:14 06/24/21 04:14 06/24/21 10:37 06/24/21 04:14 06/24/21 04:14 General appearance: Present: no acute distress - EENT Eyes: Present: PERRL, EOM intact ENT: hearing intact - Neck Neck: Present: supple, normal ROM - Respiratory Respiratory effort: normal - Cardiovascular Rhythm: regular Heart Sounds: Present: S1 & S2 - Extremities Extremity abnormal: edema (Right knee edema improved.) - Abdominal General gastrointestinal: Present: soft, non-tender, non-distended, normal bowel sounds - Integumentary Integumentary: Present: clear, warm, dry - Musculoskeletal Musculoskeletal: strength equal bilaterally - Psychiatric Psychiatric: appropriate mood/affect - Neurologic Neurologic: CNII-XII intact, moves all extremities Plan Activity: advance as tolerated Weight Bearing Status: Weight Bear as Tolerated Diet: low salt Follow up with: PRIMARY CARE, [Primary Care Provider] - 3-5 Days Prescriptions: predniSONE 10 mg PO QDAY #7 tablet Pantoprazole [Protonix TAB] 40 mg PO QDAC #14 tablet Ketorolac [Toradol] 10 mg PO Q6H PRN #14 tablet PRN Reason: Pain
== END 2021-06-24 15:00 | disposition home health service (06) | DRG 546 ==
LOC: ED 23:08 → 4A 06-17 05:07 → OBSVTOIN 06-19 14:44
PROVIDERS: ADMIT Internal Medicine Geriatric Medicine; ATTEND Internal Medicine
PROC: 3E0U33Z Introduction of Anti-inflammatory into Joints, Percutaneous Approach (ICD-10-PCS; principal; 2021-06-22)
DX: M06.9 Rheumatoid arthritis, unspecified (principal); E87.1 Hypo-osmolality and hyponatremia; M86.8X2 Other osteomyelitis, upper arm; M17.0 Bilateral primary osteoarthritis of knee; G89.29 Other chronic pain; F17.210 Nicotine dependence, cigarettes, uncomplicated; D75.839 Thrombocytosis, unspecified; Z79.899 Other long term (current) drug therapy
CPT/HCPCS: 36415; 80048; 80053; 85025; 85027; 85610; 85652; 86038; 86140; 86160; 86200; 86431; G0378; J0696; J1170; J1644; J1885; J2270; J2405; J2543; J3370; J7030; J7512

== ENCOUNTER 2021-08-18 22:16 | Emergency (ER) | payer MEDICARE | END 2021-08-19 06:09 | disposition left against medical advice (07) | LOC: ED 22:16 | DX: R51.9 Headache, unspecified (principal); Z53.21 Procedure and treatment not carried out due to patient leaving prior to being seen by health care provider ==

== ENCOUNTER 2021-08-21 18:52 | Emergency (ER) | payer MEDICARE ==
[2021-08-21] MEDS ORDERED: MORPHINE 4 MG/1 ML INJ IM ONE (21:08)
[2021-08-21] MEDS ORDERED: oxyCODONE /ACETAMINOPHEN 5-325MG TAB PO ONE (21:08)
--- NOTE | 2021-08-21 21:12 | Emergency Department Report ---
ED General Adult HPI - General Chief complaint: Pain General Stated complaint: BODYACHES AND JOINT PAIN PUI?: No Time Seen by Provider: 08/21/21 21:02 Source: patient Mode of arrival: Ambulatory Limitations: No Limitations - History of Present Illness Initial comments: Chief complaint: I am in severe pain HPI: This is a 61-year-old female with history of arthritis, tobacco abuse who presents with generalized joint pain. She has bilateral shoulder pain, bilateral wrist pain, bilateral knee pain. She has been evaluated by r heumatologist. Presumed diagnosis of rheumatoid arthritis. Has not has any steroids did not help. She has severe pain. She has knee replacement scheduled in [address] Willett. She is unable to take Goody's powders due to GI distress. Denies hand pain. She has swelling in her wrists chronically. -: Gradual Location: left, right, upper extremity, lower extremity Severity scale (0 -10): 10 Quality: aching Consistency: constant Improves with: none Worsens with: movement Associated Symptoms: other (Joint swelling especially in the wrists and knees) - Related Data Home Medications Medication Instructions Recorded Confirmed Last Taken Goody's Ex-Str Powder Packet 1 dose PO PRN PRN 06/21/21 08/19/21 Unknown Hydromorphone HCl [Dilaudid] 8 mg PO PRN PRN 08/19/21 08/19/21 Unknown Ketorolac [Toradol] 10 mg PO Q4HR PRN 08/19/21 08/19/21 Unknown Prednisone [predniSONE (Onel) ER 2 mg PO QDAY 08/19/21 08/19/21 Unknown TAB] Previous Rx's Medication Instructions Recorded Last Taken Type oxyCODONE /ACETAMINOPHEN [Percocet 1 tab PO Q6HR PRN #15 tablet 08/21/21 Unknown Rx 5/325] Allergies Allergy/AdvReac Type Severity Reaction Status Date / Time amitriptyline Allergy Rash , Verified 08/19/21 11:02 CONFUSION erythromycin base Allergy Rash , Verified 08/19/21 11:02 [From E-Mycin] CONFUSION gabapentin [From Neurontin] Allergy Rash , Verified 08/19/21 11:02 CONFUSION methadone Allergy Rash , Verified 08/19/21 11:02 CONFUSION ED Review of Systems ROS: Stated complaint: BODYACHES AND JOINT PAIN Other details as noted in HPI Comment: All other systems reviewed and negative Constitutional: denies: fever, malaise Respiratory: denies: shortness of breath Cardiovascular: denies: chest pain Gastrointestinal: denies: abdominal pain ED Past Medical Hx - Past Medical History Previous Medical History?: Yes Hx Hypertension: No Hx Heart Attack/AMI: No Hx Congestive Heart Failure: No Hx Diabetes: No Hx GERD: No Hx Liver Disease: No Hx Sickle Cell Disease: No Hx Arthritis: Yes (SAMARA KNEES,WRISTS,SHOULDERS & ELBOWS,JOINT PAIN) Hx Headaches / Migraines: Yes (MIGRAINES) Hx Seizures: No Hx Kidney Stones: No Hx Tuberculosis: No Hx HIV: No Additional medical history: chronic pain - Surgical History Past Surgical History?: No - Social History Smoking Status: Current Every Day Smoker Substance Use Type: None - Medications Home Medications: Home Medications Medication Instructions Recorded Confirmed Last Taken Type Goody's Ex-Str Powder Packet 1 dose PO PRN PRN 06/21/21 08/19/21 Unknown History Hydromorphone HCl [Dilaudid] 8 mg PO PRN PRN 08/19/21 08/19/21 Unknown History Ketorolac [Toradol] 10 mg PO Q4HR PRN 08/19/21 08/19/21 Unknown History Prednisone [predniSONE (Onel) ER 2 mg PO QDAY 08/19/21 08/19/21 Unknown History TAB] oxyCODONE /ACETAMINOPHEN [Percocet 1 tab PO Q6HR PRN #15 tablet 08/21/21 Unknown Rx 5/325] ED Physical Exam - General Limitations: No Limitations General appearance: alert, in no apparent distress - Head Head exam: Present: atraumatic, normocephalic - Eye Eye exam: Present: normal appearance - ENT ENT exam: Present: mucous membranes moist - Neck Neck exam: Present: normal inspection, full ROM - Respiratory Respiratory exam: Present: normal lung sounds bilaterally. Absent: respiratory distress, wheezes, rales, rhonchi - Cardiovascular Cardiovascular Exam: Present: regular rate, normal rhythm, normal heart sounds. Absent: systolic murmur, diastolic murmur, rubs, gallop - GI/Abdominal GI/Abdominal exam: Present: soft, normal bowel sounds. Absent: distended, tenderness, guarding, rebound - Extremities Exam Extremities exam: Present: other (Bilateral wrist edema no erythema, bilateral knee brace intact) - Neurological Exam Neurological exam: Present: alert, oriented X3 - Psychiatric Psychiatric exam: Present: normal affect, normal mood - Skin Skin exam: Present: warm, dry, intact, normal color. Absent: rash ED Course Vital Signs 08/21/21 19:02 Temperature 98.4 F Pulse Rate 92 H Respiratory 20 Rate Blood Pressure 127/107 [Right] O2 Sat by Pulse 97 Oximetry ED Medical Decision Making - Medical Decision Making Diffuse generalized joint pain and swelling. Suspect rheumatoid arthritis. Patient has surgical intervention planned by Dr. Willett in 4 days on August 25 for knee replacement. I have prescribed 15 tablets of Percocet. I referred her to outpatient medicine physician. Patient received IM morphine and p.o. Percocet in emergency department. Critical care attestation.: If time is entered above; I have spent that time in minutes in the direct care of this critically ill patient, excluding procedure time. ED Disposition Clinical Impression: Arthralgia Disposition: HOME / SELF CARE / HOMELESS Is pt being admited?: No Does the pt Need Aspirin: No Condition: Stable Instructions: Joint Pain, [id number] Prescriptions: oxyCODONE /ACETAMINOPHEN [Percocet 5/325] 1 tab PO Q6HR PRN #15 tablet PRN Reason: Pain Referrals: CAR SALAZAR MD [Staff Physician] - 3-5 Days MODESTO WILLETT MD [Staff Physician] - 3-5 Days
[2021-08-21 22:01] VITALS: BP 143/91
== END 2021-08-21 22:02 | disposition home or self-care (01) ==
LOC: ED 18:52
DX: M25.50 Pain in unspecified joint (principal); M19.90 Unspecified osteoarthritis, unspecified site; G43.909 Migraine, unspecified, not intractable, without status migrainosus; F17.200 Nicotine dependence, unspecified, uncomplicated; Z88.1 Allergy status to other antibiotic agents; Z88.5 Allergy status to narcotic agent; Z88.8 Allergy status to other drugs, medicaments and biological substances
CPT/HCPCS: 96372; 99282; J2270

== ENCOUNTER 2021-10-05 12:31 | Outpatient (CLI) | payer MEDICARE ==
--- NOTE | 2021-10-05 13:26 | XRay Report ---
Right knee 2 views INDICATION: Knee pain FINDINGS: Right total knee arthroplasty is satisfactory in position. No acute fracture or dislocation . Signer Name: Sha Hatfield MD Signed: 10/05/2021 1:21 PM Workstation Name: [id number]
== END 2021-10-05 12:32 | disposition home or self-care (01) ==
LOC: XRAY 12:31
PROVIDERS: ATTEND Orthopaedic Surgery
DX: M25.561 Pain in right knee (principal); Z96.651 Presence of right artificial knee joint

== ENCOUNTER 2022-01-23 21:53 | Emergency (ER) | payer MEDICARE ==
[2022-01-24 00:42] VITALS: BP 132/102
== END 2022-01-24 03:30 | disposition left against medical advice (07) ==
LOC: ED 21:53
DX: M25.562 Pain in left knee (principal); Z53.21 Procedure and treatment not carried out due to patient leaving prior to being seen by health care provider

== ENCOUNTER 2022-01-24 04:37 | Emergency (ER) | payer MEDICARE ==
[2022-01-24] MEDS ORDERED: KETOROLAC 30 MG/1 ML INJ IV ONE (08:20)
[2022-01-24] MEDS ORDERED: MORPHINE 4 MG/1 ML INJ IV ONE (08:20)
[2022-01-24] MEDS ORDERED: ONDANSETRON 4 MG/2 ML INJ IV ONE (08:20)
[2022-01-24] MEDS ORDERED: dexAMETHasone 4 MG/ML VIAL IV ONE (08:20)
[2022-01-24 08:39] VITALS: BP 150/90
--- NOTE | 2022-01-24 09:26 | XRay Report ---
F KNEE 4 VIEWS INDICATION: pain and swelling, s/p replacement. COMPARISON: 10/27/2021 IMPRESSION: There is mild osteopenia. There is suggestion of a mild valgus deformity although this m ay be due to positioning of the patient. Stable appearance of the left knee prosthesis since 2. No obvious findings to suggest loosening or infection. No acute osseous abnormality. There is mild nonspecific anterior soft tissue swelling. No obvious soft tissue gas. No significant joint effusion is appreciated. Signer Name: Jeet Mcclain Jr, MD Signed: 01/24/2022 9:22 AM Workstation Name: [id number]
--- NOTE | 2022-01-24 09:47 | Emergency Department Report ---
ED Extremity Problem HPI - General Chief complaint: Pain General Stated complaint: LT KNEE PAIN Time Seen by Provider: 01/24/22 08:06 Source: patient Mode of arrival: Ambulatory Limitations: No Limitations - History of Present Illness Initial comments: 61-year-old white female with a past medical history of arthritis and bilateral knee surgery presents to the emergency department for evaluation of left knee pain. She states that in October 2021 she had her left knee replaced and since then she has had persistent pain and swelling. She states that over the last week pain and swelling has been worse. She states that she has an appointment with Dr. Montes on for an x-ray and MRI but states that pain is too bad to wait that long. She denies fever, chest pain, shortness of breath, hemoptysis, numbness tingling to lower extremity. MD Complaint: joint swelling, joint paint -: Gradual, week(s) (2-3) Location: left, knee History of Same: Yes -: No myalgia, No arthralgia, No fever, No associated chest pain Radiation: none Severity scale (0 -10): 10 Quality: aching Consistency: constant Worsens with: weight bearing Associated Symptoms: denies: chest pain, shortness of breath, fever, myalgias, arthralgias, rash - Related Data Home Medications Medication Instructions Recorded Confirmed Last Taken Carisoprodol [Soma] 350 mg PO TID 10/24/21 10/24/21 Unknown Previous Rx's Medication Instructions Recorded Last Taken Type Apixaban [Eliquis] 5 mg PO DAILY 30 Days 10/31/21 Unknown Rx Oxycodone HCl/Acetaminophen 1 each PO Q6HR PRN #30 10/31/21 Unknown Rx [Percocet 10/325 mg] Acetaminophen/Codeine [Tylenol 1 tab PO Q6H PRN #12 tab 01/24/22 Unknown Rx /Codeine # 3 tab] methylPREDNISolone [Medrol 4MG 4 mg PO DAILY #1 pack 01/24/22 Unknown Rx DOSEPAK (21 tabs)] Allergies Allergy/AdvReac Type Severity Reaction Status Date / Time amitriptyline Allergy Rash , Verified 01/24/22 05:04 CONFUSION erythromycin base Allergy Rash , Verified 01/24/22 05:04 [From E-Mycin] CONFUSION gabapentin [From Neurontin] Allergy Rash , Verified 01/24/22 05:04 CONFUSION methadone Allergy Rash , Verified 01/24/22 05:04 CONFUSION ED Review of Systems ROS: Stated complaint: LT KNEE PAIN Other details as noted in HPI Comment: All other systems reviewed and negative Constitutional: denies: chills, fever Eyes: denies: eye pain ENT: denies: ear pain, congestion Respiratory: denies: cough, shortness of breath, SOB with exertion, SOB at rest Cardiovascular: denies: chest pain, palpitations, dyspnea on exertion Gastrointestinal: denies: abdominal pain, nausea, vomiting Genitourinary: denies: urgency, dysuria Musculoskeletal: denies: back pain Skin: denies: rash, lesions Neurological: denies: headache, weakness Psychiatric: denies: anxiety, depression ED Past Medical Hx - Past Medical History Previous Medical History?: Yes Hx Hypertension: No Hx Heart Attack/AMI: No Hx Congestive Heart Failure: No Hx Diabetes: No Hx GERD: No Hx Liver Disease: No Hx Renal Disease: No Hx Sickle Cell Disease: No Hx Arthritis: (RA PER H&P- PT DENIES) Hx Headaches / Migraines: Yes (MIGRAINES) Hx Seizures: No Hx Kidney Stones: No Hx Asthma: Yes (child) Hx COPD: No Hx Tuberculosis: No Hx HIV: No Additional medical history: chronic pain - Surgical History Past Surgical History?: Yes Additional Surgical History: knee replacement ( right and left) - Social History Smoking Status: Never Smoker Substance Use Type: None - Medications Home Medications: Home Medications Medication Instructions Recorded Confirmed Last Taken Type Carisoprodol [Soma] 350 mg PO TID 10/24/21 10/24/21 Unknown History Apixaban [Eliquis] 5 mg PO DAILY 30 Days 10/31/21 Unknown Rx Oxycodone HCl/Acetaminophen 1 each PO Q6HR PRN #30 10/31/21 Unknown Rx [Percocet 10/325 mg] Acetaminophen/Codeine [Tylenol 1 tab PO Q6H PRN #12 tab 01/24/22 Unknown Rx /Codeine # 3 tab] methylPREDNISolone [Medrol 4MG 4 mg PO DAILY #1 pack 01/24/22 Unknown Rx DOSEPAK (21 tabs)] ED Physical Exam - General Limitations: No Limitations General appearance: alert, in no apparent distress - Head Head exam: Present: atraumatic, normocephalic - Eye Eye exam: Present: normal appearance. Absent: conjunctival injection - Neck Neck exam: Present: normal inspection, full ROM. Absent: tenderness, lymphadenopathy - Respiratory Respiratory exam: Present: normal lung sounds bilaterally. Absent: respiratory distress - Cardiovascular Cardiovascular Exam: Present: regular rate, normal heart sounds - GI/Abdominal GI/Abdominal exam: Present: soft, normal bowel sounds. Absent: distended, tenderness, guarding, rebound, rigid - Expanded Lower Extremity Exam Left Hip exam: Present: normal inspection Upper Leg exam: Present: normal inspection Knee exam: Present: tenderness, swelling, effusion. Absent: full ROM, abrasion, laceration, ecchymosis, deformity, crepidus, dislocation, erythema Lower Leg exam: Present: normal inspection. Absent: tenderness, erythema, Lit's sign Neuro vascular tendon exam: Present: no vascular compromise. Absent: pulse deficit, abnormal cap refill, motor deficit, sensory deficit, extremity cold to touch, pallor - Back Exam Back exam: Present: normal inspection. Absent: tenderness - Neurological Exam Neurological exam: Present: alert, oriented X3 - Psychiatric Psychiatric exam: Present: normal affect, normal mood - Skin Skin exam: Present: warm, dry, intact, normal color ED Course Vital Signs 01/24/22 01/24/22 01/24/22 05:01 08:37 08:38 Temperature 98.5 F 98.7 F Pulse Rate 88 80 Respiratory 18 14 14 Rate Blood Pressure 134/86 150/90 [Left] O2 Sat by Pulse 98 98 Oximetry 01/24/22 09:19 Temperature Pulse Rate Respiratory 14 Rate Blood Pressure [Left] O2 Sat by Pulse Oximetry - Reevaluation(s) Reevaluation #1: 01/24/22 10:26 Pain slightly improved after medications. ED Medical Decision Making - Radiology Data Radiology results: report reviewed, image reviewed Left knee x-ray: IMPRESSION: There is mild osteopenia. There is suggestion of a mild valgus deformity although this may be due to positioning of the patient. Stable appearance of the left knee prosthesis since 10/27/2021. No obvious findings to suggest loosening or infection. No acute osseous abnormality. There is mild nonspecific anterior soft tissue swelling. No obvious soft tissue gas. No significant joint effusion is appreciated. - Medical Decision Making 61-year-old white female with a past medical history of arthritis and bilateral knee surgery presents to the emergency department for evaluation of left knee pain. She states that in October 2021 she had her left knee replaced and since then she has had persistent pain and swelling. She states that over the last week pain and swelling has been worse. She states that she has an appointment with Dr. Montes on for an x-ray and MRI but states that pain is too bad to wait that long. She denies fever, chest pain, shortness of breath, hemoptysis, numbness tingling to lower extremity. Left knee x-ray with stable appearance of prosthesis and no sign of loosening or infection. Patient will be treated for pain in the emergency department with morphine, Toradol, Decadron, and Zofran for nausea. She she will be discharged home to follow-up with Dr. Montes with prescription for Medrol Dosepak along with Tylenol 3 to use as needed for pain. She is advised to take medication as prescribed and go to appointment on with Dr. Montes. She verbalized understanding of and agreement with plan of care. Critical care attestation.: If time is entered above; I have spent that time in minutes in the direct care of this critically ill patient, excluding procedure time. ED Disposition Clinical Impression: Pain and swelling of left knee Disposition: HOME / SELF CARE / HOMELESS Is pt being admited?: No Does the pt Need Aspirin: No Condition: Stable Instructions: Acute Knee Pain, Adult, [id number], Joint Pain, [id number] Additional Instructions: Take medications as prescribed. Follow-up with Dr. Montes as planned. Return to the ER as needed. Prescriptions: methylPREDNISolone [Medrol 4MG DOSEPAK (21 tabs)] 4 mg PO DAILY #1 pack Acetaminophen/Codeine [Tylenol /Codeine # 3 tab] 1 tab PO Q6H PRN #12 tab PRN Reason: Pain , Severe (7-10) Referrals: MODESTO MONTES MD [Staff Physician] - 3-5 Days Time of Disposition: 09:50
[2022-01-24] MEDS ORDERED: ACETAMINOPHEN W/CODEINE 300-30 MG TAB PO ONE (10:28)
== END 2022-01-24 11:09 | disposition home or self-care (01) ==
LOC: ED 04:37
DX: M25.562 Pain in left knee (principal); Z88.8 Allergy status to other drugs, medicaments and biological substances; Z88.1 Allergy status to other antibiotic agents
CPT/HCPCS: 73564; 96374; 96375; 99283; J1100; J1885; J2270; J2405

== ENCOUNTER 2022-01-26 03:13 | Emergency (ER) | payer MEDICARE ==
[2022-01-26 03:21] VITALS: BP 150/99
== END 2022-01-26 11:12 | disposition left against medical advice (07) ==
LOC: ED 03:13
DX: R20.2 Paresthesia of skin (principal); Z53.21 Procedure and treatment not carried out due to patient leaving prior to being seen by health care provider

== ENCOUNTER 2022-06-10 18:55 | Emergency (ER) | payer MEDICARE ==
[2022-06-10] MEDS ORDERED: MORPHINE 4 MG/1 ML INJ IM ONE (23:36)
[2022-06-10] MEDS ORDERED: dexAMETHasone 20 MG/5 ML VIAL IM ONE (23:36)
--- NOTE | 2022-06-10 23:38 | Emergency Department Report ---
ED General Adult HPI - General Chief complaint: Pain General Stated complaint: CHRONIC PAIN Time Seen by Provider: 06/10/22 21:09 Source: patient, EMS Mode of arrival: Stretcher Limitations: No Limitations - History of Present Illness Initial comments: 62-year-old female with multiple medical history including rheumatoid arthritis, DVT presenting to the emergency department with pain. Patient describes sharp pain all over her joints, reports she sees a striker out for the past 1 year and she has been on Remicade infusion but her "arthritis does not seem to be controlled, states She is pain is getting worse, especially every time she gets an infusion". She states she did get her last infusion on , reports she has an appointment with her striker out on Sunday to discuss further treatment options. She is currently taking Tylenol 3 without improvement, she denies fever, chills, no recent illness or infection, no chest pain, no s hortness of breath, no nausea vomiting abdominal pain, no weakness dizziness or vision changes Severity scale (0 -10): 10 - Related Data Previous Rx's Medication Instructions Recorded Last Taken Type Apixaban [Eliquis] 5 mg PO DAILY 30 Days 10/31/21 Unknown Rx Oxycodone HCl/Acetaminophen 1 each PO Q6HR PRN #30 10/31/21 Unknown Rx [Percocet 10/325 mg] Acetaminophen/Codeine [Tylenol 1 tab PO Q6H PRN #12 tab 01/24/22 Unknown Rx /Codeine # 3 tab] methylPREDNISolone [Medrol 4MG 4 mg PO DAILY #1 pack 01/24/22 Unknown Rx DOSEPAK (21 tabs)] Carisoprodol [Soma] 350 mg PO TID PRN #30 06/11/22 Unknown Rx Lidocaine [Lidoderm] 1 each TP DAILY #15 patch 06/11/22 Unknown Rx predniSONE [Deltasone] 50 mg PO QDAY 5 Days tab 06/11/22 Unknown Rx Allergies Allergy/AdvReac Type Severity Reaction Status Date / Time amitriptyline Allergy Rash , Verified 01/24/22 05:04 CONFUSION erythromycin base Allergy Rash , Verified 01/24/22 05:04 [From E-Mycin] CONFUSION gabapentin [From Neurontin] Allergy Rash , Verified 01/24/22 05:04 CONFUSION methadone Allergy Rash , Verified 01/24/22 05:04 CONFUSION ED Review of Systems ROS: Stated complaint: CHRONIC PAIN Other details as noted in HPI Constitutional: no symptoms reported Eyes: as per HPI ENT: as per HPI Respiratory: see HPI Cardiovascular: as per HPI. denies: chest pain, palpitations Endocrine: see HPI Gastrointestinal: denies: abdominal pain, nausea Genitourinary: denies: urgency, frequency Musculoskeletal: arthralgia Skin: denies: rash Neurological: denies: headache, weakness, numbness Hematological/Lymphatic: denies: easy bleeding, easy bruising ED Past Medical Hx - Past Medical History Hx Hypertension: No Hx Heart Attack/AMI: No Hx Congestive Heart Failure: No Hx Diabetes: No Hx GERD: No Hx Liver Disease: No Hx Renal Disease: No Hx Sickle Cell Disease: No Hx Arthritis: (RA PER H&P- PT DENIES) Hx Headaches / Migraines: Yes (MIGRAINES) Hx Seizures: No Hx Kidney Stones: No Hx Asthma: Yes (child) Hx COPD: No Hx Tuberculosis: No Hx HIV: No Additional medical history: chronic pain - Surgical History Additional Surgical History: knee replacement ( right and left) - Social History Smoking Status: Current Every Day Smoker Substance Use Type: None - Medications Home Medications: Home Medications Medication Instructions Recorded Confirmed Last Taken Type Apixaban [Eliquis] 5 mg PO DAILY 30 Days 10/31/21 Unknown Rx Oxycodone HCl/Acetaminophen 1 each PO Q6HR PRN #30 10/31/21 Unknown Rx [Percocet 10/325 mg] Acetaminophen/Codeine [Tylenol 1 tab PO Q6H PRN #12 tab 01/24/22 Unknown Rx /Codeine # 3 tab] methylPREDNISolone [Medrol 4MG 4 mg PO DAILY #1 pack 01/24/22 Unknown Rx DOSEPAK (21 tabs)] Carisoprodol [Soma] 350 mg PO TID PRN #30 06/11/22 Unknown Rx Lidocaine [Lidoderm] 1 each TP DAILY #15 patch 06/11/22 Unknown Rx predniSONE [Deltasone] 50 mg PO QDAY 5 Days tab 06/11/22 Unknown Rx ED Physical Exam - General Limitations: No Limitations, Other (Uncomfortable appearing female no acute distress, tender all over her joints, there is no obvious erythema swelling or deformity.) General appearance: alert, in no apparent distress - Head Head exam: Present: atraumatic - Eye Eye exam: Present: normal appearance Pupils: Present: normal accommodation - ENT ENT exam: Present: normal exam, normal orophraynx - Neck Neck exam: Present: normal inspection, tenderness - Respiratory Respiratory exam: Present: normal lung sounds bilaterally. Absent: respiratory distress - Cardiovascular Cardiovascular Exam: Present: regular rate, normal rhythm - GI/Abdominal GI/Abdominal exam: Present: soft. Absent: distended, tenderness - Extremities Exam Extremities exam: Present: normal inspection, full ROM, tenderness, normal capillary refill. Absent: pedal edema, joint swelling - Back Exam Back exam: Present: normal inspection, full ROM, tenderness - Neurological Exam Neurological exam: Present: alert, oriented X3, CN II-XII intact, normal gait. Absent: motor sensory deficit - Psychiatric Psychiatric exam: Present: normal affect, normal mood - Skin Skin exam: Present: warm, dry, intact, normal color ED Course Vital Signs 06/10/22 19:03 Temperature 98.5 F Pulse Rate 96 H Respiratory 18 Rate Blood Pressure 151/94 [Left] O2 Sat by Pulse 96 Oximetry ED Medical Decision Making - Medical Decision Making 62-year-old female with multiple medical history including rheumatoid arthritis, DVT presenting to the emergency department with pain. Patient describes sharp pain all over her joints, reports she sees a striker out for the past 1 year and she has been on Remicade infusion but her "arthritis does not seem to be controlled, states She is pain is getting worse, especially every time she gets an infusion". She states she did get her last infusion on , reports she has an appointment with her striker out on Sunday to discuss further treatment options. She is currently taking Tylenol 3 without improvement, she denies fever, chills, no recent illness or infection, no chest pain, no shortness of breath, no nausea vomiting abdominal pain, no weakness dizziness or vision changes. On physical exam, patient elicits tenderness in her major joints, otherwise full range of motion, ambulates with minimal assistance, vital signs are stable patient history appears patient is having RA flare, already under the care of a striker out, as well as pain management. Otherwise pain addressed in the emergency department with significant improvement, discharged home with topical anesthesia and follow-up relative steroids, encouraged her to continue taking her Tylenol with codeine and to speak with her pain management doctor concerning further options for her pain management. Already has an appointment on Sunday. Patient remained stable nontoxic-appearing, afebrile, ambulating steadily without assistance. Gone over ED findings with patient as well as plan for follow-up. Also discussed return precautions with patient, all questions and concerns addressed. Patient is stable to be discharged follow-up outpatient. Audio voice dictation device used, hence the chart might contain some dictation errors, mispronunciations, wrong spelling and wrong verbiage. Critical care attestation.: If time is entered above; I have spent that time in minutes in the direct care of this critically ill patient, excluding procedure time. ED Disposition Clinical Impression: Rheumatoid arthritis, Arthralgia Disposition: HOME / SELF CARE / HOMELESS Is pt being admited?: No Does the pt Need Aspirin: No Condition: Stable Instructions: Arthritis, [id number] Prescriptions: predniSONE [Deltasone] 50 mg PO QDAY 5 Days tab Lidocaine [Lidoderm] 1 each TP DAILY #15 patch
[2022-06-11 01:00] VITALS: BP 154/92
== END 2022-06-11 01:00 | disposition home or self-care (01) ==
LOC: ED 18:55
DX: I00 Rheumatic fever without heart involvement (principal); M25.50 Pain in unspecified joint; F17.200 Nicotine dependence, unspecified, uncomplicated; Z88.8 Allergy status to other drugs, medicaments and biological substances
CPT/HCPCS: 96372; 99283; J1100; J2270

== ENCOUNTER 2022-06-12 19:01 | Emergency (ER) | payer MEDICARE ==
[2022-06-13] MEDS ORDERED: oxyCODONE /ACETAMINOPHEN 5-325MG TAB PO ONE (08:31)
[2022-06-13] MEDS ORDERED: KETOROLAC 60 MG/2 ML INJ IM ONE (08:31)
--- NOTE | 2022-06-13 08:33 | Emergency Department Report ---
ED General Adult HPI - General Chief complaint: Pain General Stated complaint: PAIN ALL OVER PUI?: No Time Seen by Provider: 06/13/22 08:14 Source: patient, EMS Mode of arrival: Stretcher Limitations: Physical Limitation - History of Present Illness Initial comments: Patient is a 62-year-old female that comes to the emergency department with generalized pain for the last 12 years. She does state that she has been told that she has rheumatoid arthritis, then she adds that she has had 3 negative rheumatoid test. She saw her primary care yesterday and they gave her a shot of Decadron. However, she has not gotten relief so she has come to the ER. She states that her back has been hurting since 2010. She has had a 3-month history of arm and shoulder pain. And a 6-month history of hip pain. She is requesting morphine and Dilaudid. She states that she currently takes Soma, Synthroid and her RA medicines. When she states that they recently changed her to Enbrel. She is begging for just dose of medication to get her pain relief prior to discharge. -: year(s) Severity scale (0 -10): 10 - Related Data Previous Rx's Medication Instructions Recorded Last Taken Type Apixaban [Eliquis] 5 mg PO DAILY 30 Days 10/31/21 Unknown Rx Oxycodone HCl/Acetaminophen 1 each PO Q6HR PRN #30 10/31/21 Unknown Rx [Percocet 10/325 mg] Acetaminophen/Codeine [Tylenol 1 tab PO Q6H PRN #12 tab 01/24/22 Unknown Rx /Codeine # 3 tab] methylPREDNISolone [Medrol 4MG 4 mg PO DAILY #1 pack 01/24/22 Unknown Rx DOSEPAK (21 tabs)] Carisoprodol [Soma] 350 mg PO TID PRN #30 06/11/22 Unknown Rx Lidocaine [Lidoderm] 1 each TP DAILY #15 patch 06/11/22 Unknown Rx predniSONE [Deltasone] 50 mg PO QDAY 5 Days tab 06/11/22 Unknown Rx Allergies Allergy/AdvReac Type Severity Reaction Status Date / Time amitriptyline Allergy Rash , Verified 01/24/22 05:04 CONFUSION erythromycin base Allergy Rash , Verified 01/24/22 05:04 [From E-Mycin] CONFUSION gabapentin [From Neurontin] Allergy Rash , Verified 01/24/22 05:04 CONFUSION methadone Allergy Rash , Verified 01/24/22 05:04 CONFUSION ED Review of Systems ROS: Stated complaint: PAIN ALL OVER Other details as noted in HPI Comment: All other systems reviewed and negative ED Past Medical Hx - Past Medical History Previous Medical History?: Yes Hx Hypertension: No Hx Heart Attack/AMI: No Hx Congestive Heart Failure: No Hx Diabetes: No Hx GERD: No Hx Liver Disease: No Hx Renal Disease: No Hx Sickle Cell Disease: No Hx Arthritis: (RA PER H&P- PT DENIES) Hx Headaches / Migraines: Yes (MIGRAINES) Hx Seizures: No Hx Kidney Stones: No Hx Asthma: Yes (child) Hx COPD: No Hx Tuberculosis: No Hx HIV: No Additional medical history: chronic pain - Surgical History Past Surgical History?: Yes Additional Surgical History: knee replacement ( right and left) - Family History Family history: no significant - Social History Smoking Status: Current Every Day Smoker Substance Use Type: None - Medications Home Medications: Home Medications Medication Instructions Recorded Confirmed Last Taken Type Apixaban [Eliquis] 5 mg PO DAILY 30 Days 10/31/21 Unknown Rx Oxycodone HCl/Acetaminophen 1 each PO Q6HR PRN #30 10/31/21 Unknown Rx [Percocet 10/325 mg] Acetaminophen/Codeine [Tylenol 1 tab PO Q6H PRN #12 tab 01/24/22 Unknown Rx /Codeine # 3 tab] methylPREDNISolone [Medrol 4MG 4 mg PO DAILY #1 pack 01/24/22 Unknown Rx DOSEPAK (21 tabs)] Carisoprodol [Soma] 350 mg PO TID PRN #30 06/11/22 Unknown Rx Lidocaine [Lidoderm] 1 each TP DAILY #15 patch 06/11/22 Unknown Rx predniSONE [Deltasone] 50 mg PO QDAY 5 Days tab 06/11/22 Unknown Rx ED Physical Exam - General Limitations: No Limitations, Physical Limitation General appearance: alert, in no apparent distress - Head Head exam: Present: atraumatic, normocephalic - Eye Eye exam: Present: normal appearance - ENT ENT exam: Present: mucous membranes moist - Neck Neck exam: Present: normal inspection - Respiratory Respiratory exam: Present: normal lung sounds bilaterally. Absent: respiratory distress - Cardiovascular Cardiovascular Exam: Present: regular rate, normal rhythm. Absent: systolic murmur, diastolic murmur, rubs, gallop - GI/Abdominal GI/Abdominal exam: Present: soft, normal bowel sounds - Extremities Exam Extremities exam: Present: normal inspection - Back Exam Back exam: Present: normal inspection - Neurological Exam Neurological exam: Present: alert, oriented X3 - Psychiatric Psychiatric exam: Present: normal affect, normal mood - Skin Skin exam: Present: warm, dry, intact, normal color. Absent: rash ED Course Vital Signs 06/12/22 06/13/22 19:01 09:10 Temperature 98 F 97.8 F Pulse Rate 90 89 Respiratory 16 20 Rate Blood Pressure 150/90 142/78 [Left] O2 Sat by Pulse 97 100 Oximetry ED Medical Decision Making - Medical Decision Making Vital Signs 06/12/22 19:01 Temperature 98 F Pulse Rate 90 Respiratory 16 Rate Blood Pressure 150/90 [Left] O2 Sat by Pulse 97 Oximetry Patient given Toradol injection and Aloxi in the ER. I told her I cannot discharge her with any opiate pain medications. That she needs to follow-up with her doctors. She verbalizes understanding. She was upset but cooperative. Patient being discharged home with discharge plan of care including diet, activity, medications and follow-up. She verbalizes understanding of plan of care. She called her [employer] ride for her ride home from the ER. - Differential Diagnosis Chronic pain Critical care attestation.: If time is entered above; I have spent that time in minutes in the direct care of this critically ill patient, excluding procedure time. ED Disposition Clinical Impression: Rheumatoid arthritis, Intractable pain, Arthralgia, Drug-seeking behavior Disposition: 01 HOME / SELF CARE / HOMELESS Is pt being admited?: No Does the pt Need Aspirin: No Condition: Stable Additional Instructions: TAKE HOME MEDS INSTRUCTED FOLLOW UP WITH RA AND PCP INSTRUCTED Referrals: CAR SALAZAR MD [Staff Physician] - 3-5 Days Time of Disposition: 08:32
[2022-06-13 09:11] VITALS: BP 142/78
== END 2022-06-13 09:10 | disposition home or self-care (01) ==
LOC: ED 19:01
DX: M06.9 Rheumatoid arthritis, unspecified (principal); Z76.5 Malingerer [conscious simulation]; M19.90 Unspecified osteoarthritis, unspecified site; J45.909 Unspecified asthma, uncomplicated; Z91.09 Other allergy status, other than to drugs and biological substances; F17.200 Nicotine dependence, unspecified, uncomplicated
CPT/HCPCS: 96372; 99283; J1885